=== PATIENT | female | born 1985 | race Caucasian/White ===

== ENCOUNTER 2016-12-22 11:33 | Inpatient (IN) | payer OTHER ==
[2016-12-22 11:41] VITALS: BMI 40.0
[2016-12-22 12:03] LABS: BASOPHIL 0.4 % (0-2.0); MCH 28.5 pg (25.7-33.7); MCHC 32.3 g/dl (32.0-36.0); MEAN CELL VOLUME 88.5 fl (80-96); MEAN PLT VOLUME 9.8 fl (7.5-11.1); NEUTROPHILS 86.3 % (42.8-82.8); PLATELET COUNT 260 K/MM3 (134-434); RDW 15.2 % (11.6-15.6); WHITE BLOOD COUNT 15.6 K/mm3 (4.0-10.0)
[2016-12-22 12:32] LABS: ALBUMIN 4.6 g/dl (3.4-5.0); ANION GAP 24 (8-16); CALCIUM 8.7 mg/dL (8.5-10.1); CO2 6 mmol/L (21-32); SGOT/AST 97 U/L (15-37); SGPT/ALT 180 U/L (12-78); TOT PROT 8.5 g/dl (6.4-8.2)
[2016-12-22 12:34] LABS: ALK PHOS 137 U/L (45-117); GLUCOSE,RANDOM 319 mg/dL (74-106)
[2016-12-22] MEDS ORDERED: SODIUM CHLORIDE 1,000 ML IV STA ×2 (12:34→13:35)
[2016-12-22] MEDS ORDERED: FAMOTIDINE 20 MG/50 ML IVPB 50 ML IVPB ONE ×2 (12:34→12:42)
[2016-12-22] MEDS ORDERED: METOCLOPRAMIDE HCL INJECTION 10 MG/2 ML VIAL IVPB ONE (12:34)
--- NOTE | 2016-12-22 12:38 | PDOC ---
History of Present Illness - General Chief Complaint: Syncope/Near Syncope Stated Complaint: SYNCOPY Time Seen by Provider: 12/22/16 12:16 History Source: Patient Exam Limitations: Language Barrier (patient's family member provided Guyanese translation) - History of Present Illness Initial Comments: CHIEF COMPLAINT: 31 y/o afebrile female with PMH NIDDM c/o nausea, vomiting and abd pain for the past 1 week. HISTORY OF PRESENT ILLNESS: The patient states she vomits every time she eats or drinks although she does admit that she is urinating a lot. She also has a headache, feels weak and fell down today from her weakness. She denies head trauma, LOC, f/c, runny nose, sore throat, diarrhea, constipation, CP, SOB, back pain, hematuria, dysuria. The patient's family member does not think her diabetes is well controlled. Vital signs on arrival are notable for pulse of 115. REVIEW OF SYSTEMS: GENERAL/CONSTITUTIONAL: No fever/chills. + weakness. No weight change. HEAD, EYES, EARS, NOSE AND THROAT: No change in vision. No ear pain or discharge. No sore throat. CARDIOVASCULAR: No chest pain or shortness of breath. RESPIRATORY: No cough, wheezing, or hemoptysis. GASTROINTESTINAL: +nausea, vomiting and abdominal pain. No diarrhea or constipation. GENITOURINARY: No dysuria, frequency, or change in urination. MUSCULOSKELETAL: No joint or muscle swelling or pain. No neck or back pain. SKIN: No rash or easy bruising. NEUROLOGIC: +headache. No vertigo, loss of consciousness, or loss of sensation. PHYSICAL EXAM: GENERAL: The patient is awake, alert, and fully oriented, in no acute distress. She cries intermittently from pain. HEAD: Normal with no signs of trauma. ENT: Pupils equal, round and reactive to light, extraocular movements intact, sclera anicteric, conjunctiva clear. Neck supple. Mucous membranes moist. LUNGS: Clear to auscultation bilaterally. Normal excursion. No respiratory distress or use of accessory muscles. CV: RRR, S1/S2, no MRG. Cap refill < 2 sec. ABDOMEN: Soft, obese, diffusely TTP. No rebound, guarding or rigidity. EXTREMITIES: Normal range of motion, no edema. NEUROLOGICAL: Normal speech, normal gait. CN II-XII grossly intact. PSYCH: Normal mood, normal affect. SKIN: Warm, dry, normal turgor, no rashes or lesions noted. Past History - Past Medical History Allergies/Adverse Reactions: Allergies Allergy/AdvReac Type Severity Reaction Status Date / Time No Known Allergies Allergy Verified 12/22/16 11:39 Home Medications: Ambulatory Orders Calcium Carbonate/Vitamin D3 [Calcium 600+D Softgel] 1 each PO DAILY 12/22/16 Canagliflozin [Invokana] 100 mg PO DAILY 12/22/16 Linagliptin [Tradjenta] 5 mg PO DAILY 12/22/16 Diabetes: Yes - Psycho/Social/Smoking Cessation Hx Suicidal Ideation: No Smoking History: Never smoked *Physical Exam - Vital Signs Last Vital Signs Temp Pulse Resp BP Pulse Ox 97.4 F L 115 H 20 111/91 100 12/22/16 11:39 12/22/16 11:39 12/22/16 11:39 12/22/16 11:39 12/22/16 11:39 Heart Score/ECG Review - ECG Intrepretation Comment:: Twelve-lead EKG was performed and reviewed by Dr. Weir. There is sinus tachycardia. The axis is normal. The intervals are normal. There are no ST or T wave abnormalities. Impression: Otherwise normal twelve-lead EKG ED Treatment Course - LABORATORY CBC & Chemistry Diagram: 12/22/16 11:24 12/22/16 11:24 - ADDITIONAL ORDERS Additional order review: 12/22/16 11:24 RBC 5.53 H MCV 88.5 MCHC 32.3 RDW 15.2 MPV 9.8 Neutrophils % 86.3 H Lymphocytes % 8.0 Monocytes % 5.3 Eosinophils % 0.0 Basophils % 0.4 Medical Decision Making - Medical Decision Making A/P: 31 y/o diabetic female with nausea and vomiting x 1 week. Plan is as follows: 1. EKG 2. Labs 3. UA/culture 4. IV fluids 5. IV reglan 6. IV pepcid Pt with anion gap of 24 with 319 glucose 2+ acetone Ordered 10 units SQ insulin Ordered insulin drip and 2nd bag of IV fluids Spoke with Dr. Singh, who accepts admission to ICU. Patient's PCP is Dr. Alves, who does not admit here. Microblogged hospitalist, Dr. Mckeon, who accepts admission to ICU. Pt made aware of plan for admission. *DC/Admit/Observation/Transfer Diagnosis at time of Disposition: Acetonemia due to secondary diabetes mellitus, Metabolic acidosis, Hyperglycemia, Nausea & vomiting, Weakness - Discharge Dispostion Admit: Yes
[2016-12-22] MEDS ORDERED: METOCLOPRAMIDE HCL INJECTION 10 MG/2 ML VIAL ONE (12:42)
[2016-12-22] MEDS ORDERED: INSULIN DETEMIR 100 UNITS/ML MDV SQ ONE (12:58)
[2016-12-22] MEDS ORDERED: INSULIN (NOVOLOG) ASPART 100 UNITS/ML 10ML VIAL ONE ×2 (13:00→13:36)
[2016-12-22] MEDS ORDERED: Insulin (LOG) Aspart 100 UNITS/ML VIAL SQ ONE (13:12)
[2016-12-22 13:25] LABS: TROPONIN I < 0.02 ng/ml (0.00-0.05)
[2016-12-22] MEDS ORDERED: INSULIN REGULAR 100 UNITS in SODIUM CHLORIDE 99 ML IVPB SCH ×3 (13:30→16:30)
--- NOTE | 2016-12-22 15:26 | HP ---
CHIEF COMPLAINT: Nausea and vomiting PCP: Dr Reynoso HISTORY OF PRESENT ILLNESS: patientgayathri is a 31 y/o ukrainian speaking female with a past medical history of NIDDM (diagnosed 2 years ago) and hyperlipidemia. She reports ongoing nausea, vomiting and frequent urination for the past 24 hours. Patient reports she ambulated to the bathroom this AM and felt as if she was going to pass out. Patient denies any loss of consciousness. She was evaluated by her PCP, Dr Reynoso last week for generalized weakness and reports "high" readings on her glucometer at home. She notes her fingerstick in the office was 349, patient reports she was given insulin in the office and then started on Invokana and Tradjenta. She was referred to an gunner's mate (pt can not recall the name), she reports blood work was completed in the office and is pending the results. 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 Smoking: none Alcohol:none Drugs: none Family History: mother, IDDM, father, alive and well, sister IDDM Allergies No Known Allergies Allergy (Verified 12/22/16 11:39) HOME MEDICATIONS: Home Medications Medication Instructions Recorded Calcium Carbonate/Vitamin D3 1 each PO DAILY 12/22/16 [Calcium 600+D Softgel] Canagliflozin [Invokana] 100 mg PO DAILY 12/22/16 Linagliptin [Tradjenta] 5 mg PO DAILY 12/22/16 REVIEW OF SYSTEMS CONSTITUTIONAL: Present: weakness, malaise, loss of appetite Absent: fever, chills, diaphoresis, weight change HEENT: Absent: rhinorrhea, nasal congestion, throat pain, throat swelling, difficulty swallowing, mouth swelling, ear pain, eye pain, visual changes CARDIOVASCULAR: Absent: chest pain, syncope, palpitations, irregular heart rate, lightheadedness , peripheral edema RESPIRATORY: Absent: cough, shortness of breath, dyspnea with exertion, orthopnea, wheezing, stridor, hemoptysis GASTROINTESTINAL: Present: nausea, vomiting, Absent: abdominal pain, abdominal distension, diarrhea, constipation, melena, hematochezia GENITOURINARY: Present:polyuria Absent: dysuria, frequency, urgency, hesitancy, hematuria, flank pain, genital pain MUSCULOSKELETAL: Absent: myalgia, arthralgia, joint swelling, back pain, neck pain SKIN: Absent: rash, itching, pallor HEMATOLOGIC/IMMUNOLOGIC: Absent: easy bleeding, easy bruising, lymphadenopathy, frequent infections ENDOCRINE: Absent: unexplained weight gain, unexplained weight loss, heat intolerance, cold intolerance NEUROLOGIC: Absent: headache, focal weakness or paresthesias, dizziness, unsteady gait, seizure, mental status changes, bladder or bowel incontinence PSYCHIATRIC: Absent: anxiety, depression, suicidal or homicidal ideation, hallucinations. PHYSICAL EXAMINATION GENERAL: Awake, alert, and fully oriented, tearful. HEAD: Normal with no signs of trauma. EYES: Pupils equal, round and reactive to light, extraocular movements intact, sclera anicteric, conjunctiva clear. No lid lag. EARS, NOSE, THROAT: Ears normal, nares patent, oropharynx clear without exudates. dry mucous membranes. NECK: Normal range of motion, supple without lymphadenopathy, JVD, or masses. LUNGS: Breath sounds equal, clear to auscultation bilaterally. No wheezes, and no crackles. No accessory muscle use. HEART: Regular rate and rhythm, normal S1 and S2 without murmur, rub or gallop. ABDOMEN: Soft, nontender, not distended, normoactive bowel sounds, epigastric tenderness, no guarding, no rebound, no masses. No hepatomegaly or splenomegaly. MUSCULOSKELETAL: Normal range of motion at all joints. No bony deformities or tenderness. No CVA tenderness. UPPER EXTREMITIES: 2+ pulses, warm, well-perfused. No cyanosis. No clubbing. Cap refill <2 seconds. No peripheral edema. LOWER EXTREMITIES: 2+ pulses, warm, well-perfused. No calf tenderness. No peripheral edema. NEUROLOGICAL: Cranial nerves II-XII intact. Normal speech. Normal gait. PSYCHIATRIC: Cooperative. Good eye contact. Appropriate mood and affect. SKIN: Warm, dry, normal turgor, no rashes or lesions noted. ASSESSMENT/PLAN: 1) Endo: DKA - gap remains open, continue insulin gtt - serum glucose 169, start d51/2ns w/20meg KCI @ 125ml/hr - repeat bmp at 1900 2) GI transanimitis - pending ultrasound of gallbladder - trend LFTS - pending hepatitis panel f/e/n -ivf - replete phos, kphos gtt ordered ppx oob scd protonix lovenox Visit type - Emergency Visit Emergency Visit: Yes ED Registration Date: 12/22/16 Care time: The patient presented to the Emergency Department on the above date and was hospitalized for further evaluation of their emergent condition. - New Patient This patient is new to me today: Yes Date on this admission: 12/22/16 - Critical Care Critical Care patient: Yes Total Critical Care Time (in minutes): 45 Critical Care Statement: The care of this patient involved high complexity decision making to prevent further life threatening deterioration of the patient 's condition and/or to evalute & treat vital organ system(s) failure or risk of failure.
[2016-12-22 15:57] LABS: ALBUMIN 3.8 g/dl (3.4-5.0); ANION GAP 23 (8-16); BILIRUBIN,TOTAL 0.8 mg/dL (0.2-1.0); CALCIUM 7.9 mg/dL (8.5-10.1); CO2 7 mmol/L (21-32); CREATININE 0.6 mg/dL (0.55-1.02); GLUCOSE,RANDOM 169 mg/dL (74-106); MAGNESIUM 1.9 mg/dL (1.8-2.4); PHOSPHOROUS 1.6 mg/dL (2.5-4.9); SGOT/AST 85 U/L (15-37); SGPT/ALT 150 U/L (12-78); TOT PROT 7.3 g/dl (6.4-8.2)
[2016-12-22 15:58] LABS: ALK PHOS 107 U/L (45-117)
[2016-12-22] MEDS ORDERED: SODIUM CHLORIDE 0.9%/KCL 1,000 ML IV SCH (16:00)
[2016-12-22] MEDS ORDERED: POTASSIUM PHOSPHATE 21 MM in SODIUM CHLORIDE 250 ML IVPB ONE (16:00)
[2016-12-22] MEDS ORDERED: PANTOPRAZOLE SODIUM 100 ML IVPB ONE (16:23)
[2016-12-22] MEDS ORDERED: Insulin (LOG) Aspart 100 UNITS/ML VIAL SQ SCH (16:30)
[2016-12-22] MEDS ORDERED: D5-1/2NS+20 MEQ KCL - 1,000 ML IV SCH (16:30)
[2016-12-22] MEDS: PANTOPRAZOLE SODIUM 100 ML IVPB SCH (16:39)
[2016-12-22] MEDS ORDERED: INFLUENZA VACCINE 45 MCG/0.5 ML (MDV 16-17) IM ONE (19:00)
[2016-12-22] MEDS ORDERED: PNEUMOC 13-VAL CONJ-DIP CRM/PF 0.5 ML DISP.SYRIN IM ONE (19:00)
[2016-12-22 20:29] LABS: CALCIUM 8.1 mg/dL (8.5-10.1); CREATININE 0.7 mg/dL (0.55-1.02)
[2016-12-22 20:31] LABS: CREATININE 0.8 mg/dL (0.55-1.02)
[2016-12-22 20:32] LABS: ALBUMIN 3.8 g/dl (3.4-5.0); BILIRUBIN,DIRECT 0.3 mg/dL (0.0-0.2); MAGNESIUM 1.9 mg/dL (1.8-2.4); PHOSPHOROUS 1.5 mg/dL (2.5-4.9)
[2016-12-22] MEDS ORDERED: SODIUM CHLORIDE 500 ML IV STA (20:35)
[2016-12-22 20:38] LABS: THYROID STIMULATING HORMONE 1.04 uIU/ml (0.358-3.74)
[2016-12-22] MEDS ORDERED: PNEUMOCOCCAL 23 VACCINE 0.5 ML VIAL IM ONE (20:45)
[2016-12-22] MEDS ORDERED: LACTATED RINGERS SOLUTION 1,000 ML IV STA (20:47)
--- NOTE | 2016-12-22 20:50 | CONSULT ---
Consult Consult Specialty:: Pulm/CC - History of Present Illness Chief Complaint: n/v History of Present Illness: Pt offered and declined translation services. Pt is a 31yr old woman with PMHx of HLD and DM. She presents to the ER with CC of n/v x 1 weeks and an unresolved "flu since November". In the ER found to have serum glucose >300 with anion gap and +2 acetone. Started and IVF and insulin drip and admitted to the ICU for further management. Upon assessment pt endorses headache and intermittent SOB with cough. Denies chest pain. Pt states she has lost about 20lbs in the last 2 weeks with associated polyuria. - Smoking History Smoking history: Never smoked Home Medications - Allergies Allergies/Adverse Reactions: Allergies Allergy/AdvReac Type Severity Reaction Status Date / Time No Known Allergies Allergy Verified 12/22/16 11:39 - Home Medications Home Medications: Ambulatory Orders Calcium Carbonate/Vitamin D3 [Calcium 600+D Softgel] 1 each PO DAILY 12/22/16 Canagliflozin [Invokana] 100 mg PO DAILY 12/22/16 Linagliptin [Tradjenta] 5 mg PO DAILY 12/22/16 Review of Systems - Review of Systems Constitutional: reports: Loss of Appetite, Weakness Respiratory: reports: Cough, SOB Gastrointestinal: reports: Abdominal Pain, Nausea, Vomiting Genitourinary: denies: Dysuria Neurological: reports: Headache Endocrine: reports: Increased Thirst Physical Exam Vital Signs: Vital Signs Period Temp Pulse Resp BP Sys/Mandel Pulse Ox Last 24 Hr 97.4 F-97.6 F 95-115 15-22 111-127/65-91 100-100 Intake & Output 12/19/16 12/20/16 12/21/16 12/22/16 23:59 23:59 23:59 23:59 Intake Total 2100 Output Total 1000 Balance 1100 Weight 219 lb Constitutional: Yes: Well Nourished, No Distress, Calm Eyes: Yes: WNL, PERRL HENT: Yes: WNL Neck: Yes: WNL Cardiovascular: Yes: Tachycardia (sinus on tele), S1, S2 Respiratory: Yes: SOB (intermittent), Other (no adventitious breath sounds appreciated). No: Rhonchi Gastrointestinal: Yes: Normal Bowel Sounds, Abdomen, Obese, Tenderness (RLQ, rt flank) ...Rectal Exam: Yes: Deferred Renal/: Yes: Other (polyuria) Musculoskeletal: Yes: WNL Extremities: Yes: WNL Edema: No Peripheral Pulses WNL: Yes (+2 bilateral pedal pulses) Integumentary: Yes: WNL Neurological: Yes: WNL Psychiatric: Yes: WNL Labs: Abnormal Lab Results 12/22/16 12/22/16 12/22/16 11:24 11:24 12:37 WBC 15.6 H RBC 5.53 H Hgb 15.8 H Hct 48.9 H Neutrophils % 86.3 H Sodium 134 L Chloride Carbon Dioxide 6 L Anion Gap 24 H BUN Random Glucose 319 H* Calcium Phosphorus Direct Bilirubin AST 97 H ALT 180 H Alkaline Phosphatase 137 H Total Protein 8.5 H Acetone, Qual Positive moderate 2+ H 12/22/16 12/22/16 12/22/16 15:19 19:45 19:45 WBC RBC Hgb Hct Neutrophils % Sodium Chloride 110 H 112 H 112 H Carbon Dioxide 7 L 11 L D 11 L Anion Gap 23 H BUN 6 L D 5 L 5 L Random Glucose 169 H D Calcium 7.9 L 8.0 L 8.1 L Phosphorus 1.6 L Direct Bilirubin AST 85 H ALT 150 H Alkaline Phosphatase Total Protein Acetone, Qual 12/22/16 19:45 WBC RBC Hgb Hct Neutrophils % Sodium Chloride Carbon Dioxide Anion Gap BUN Random Glucose Calcium Phosphorus 1.5 L Direct Bilirubin 0.3 H AST 71 H ALT 142 H Alkaline Phosphatase Total Protein Acetone, Qual Assessment/Plan Pt is a 31yr old with PMHx of HLD and DM. Now in the ICU for management of uncontrolled glucose and leukocytosis likely secondary to UTI +/- URI. Pulm -O2 support prn for sat >94% -Incentive spirometer -Nebulizer prn ID: Leukocytosis -f/u cultures/flu swab -Will start empiric Ceftriaxone -f/u chest xray Endo -Gap closed, tolerating po and subq levamir ordered, will d/c insulin drip and change fluids -Will start Levemir 10U BID, sliding scale novolog, increase prn -f/u A1c -BGM Renal -f/u UA -I/Os -IVF -Replete electrolytes prn Cardio -Tachycardia likely in setting of dehydration -f/u enzymes GI -f/u gallbladder us -Consider CT ab/pel is abdominal pain persists -Zofran prn Neuro -pain management Prophylactic -DVT
[2016-12-22] MEDS: INSULIN DETEMIR 100 UNITS/ML MDV SQ SCH (21:07)
[2016-12-22] MEDS ORDERED: CEFTRIAXONE 50 ML IVPB SCH (22:00)
[2016-12-22 22:26] LABS: URINE APPEARANCE CLEAR; URINE BILIRUBIN NEGATIVE (NEGATIVE); URINE COLOR STRAW; URINE GLUCOSE (UA) 3+ (NEGATIVE); URINE KETONE 2+ (NEGATIVE); URINE LEUK ESTERASE NEGATIVE (NEGATIVE); URINE NITRITE NEGATIVE (NEGATIVE); URINE UROBILINOGEN NEGATIVE E.U./dl (0.2-1.0)
[2016-12-22 22:27] LABS: URINE BLOOD 1+ (NEGATIVE); URINE PROTEIN 1+ (NEGATIVE)
[2016-12-22 22:30] LABS: GRANULAR CASTS 1 /lpf; URINE HYALINE CAST 1 /lpf; URINE MUCUS RARE; URINE RBC 1 /hpf (0-3); URINE WBC 3 /hpf (3-5); YEAST RARE
[2016-12-22] MEDS ORDERED: LACTATED RINGERS SOLUTION 1,000 ML IV SCH (22:30)
[2016-12-22] MEDS: INSULIN SLIDING SCALE (NOVOLOG) 1 VIAL SQ SCH (23:13)
[2016-12-22] MEDS ORDERED: CALCIUM (OYSTER SHELL) 500 MG TABLET (FP) PO ONE (23:30)
--- NOTE | 2016-12-23 00:35 | EKG ---
Test Reason : Blood Pressure : / mmHG Vent. Rate : 112 BPM Atrial Rate : 112 BPM P-R Int : 154 ms QRS Dur : 086 ms QT Int : 346 ms P-R-T Axes : 028 065 040 degrees QTc Int : 472 ms SINUS TACHYCARDIA OTHERWISE NORMAL ECG NO PREVIOUS ECGS AVAILABLE Confirmed by NICOLASA METCALF MD ([id number]) on 12/23/2016 12:35:35 AM Referred By: Confirmed By:NICOLASA METCALF MD
[2016-12-23 03:50] LABS: BASOPHIL 0.6 % (0-2.0); EOSINOPHIL 0.6 % (0-4.5); MCH 28.7 pg (25.7-33.7); MCHC 33.5 g/dl (32.0-36.0); MEAN CELL VOLUME 85.5 fl (80-96); MEAN PLT VOLUME 9.1 fl (7.5-11.1); PLATELET COUNT 231 K/MM3 (134-434); RDW 14.8 % (11.6-15.6); WHITE BLOOD COUNT 13.2 K/mm3 (4.0-10.0)
[2016-12-23 03:58] LABS: INR 1.16 (0.82-1.09); PROTHROMBIN TIME (PATIENT) 12.8 SEC (9.98-11.88)
[2016-12-23] MEDS ORDERED: ALBUTEROL SO4 0.083% IH SOL 2.5 MG/3 ML VIAL.NEB. NEB PRN ×2 (04:01→17:54)
[2016-12-23 04:10] LABS: ALBUMIN 3.5 g/dl (3.4-5.0); ANION GAP 18 (8-16); CALCIUM 8.3 mg/dL (8.5-10.1); CO2 12 mmol/L (21-32); CREATININE 0.7 mg/dL (0.55-1.02); GLUCOSE,RANDOM 158 mg/dL (74-106); MAGNESIUM 1.8 mg/dL (1.8-2.4); PHOSPHOROUS 1.7 mg/dL (2.5-4.9); SGOT/AST 53 U/L (15-37); SGPT/ALT 116 U/L (12-78)
[2016-12-23 04:11] LABS: ALK PHOS 87 U/L (45-117); BILIRUBIN,TOTAL 1.3 mg/dL (0.2-1.0); TOT PROT 6.4 g/dl (6.4-8.2)
[2016-12-23 04:26] LABS: AMYLASE 111 U/L (25-115)
[2016-12-23 04:27] LABS: TROPONIN I < 0.02 ng/ml (0.00-0.05)
[2016-12-23] MEDS ORDERED: POTASSIUM PHOSPHATE 25 MM in SODIUM CHLORIDE 250 ML IVPB ONE (04:42)
[2016-12-23] MEDS ORDERED: LACTATED RINGERS SOLUTION 1,000 ML IV SCH ×2 (05:02→17:54)
[2016-12-23] MEDS ORDERED: morphine CARPU-JECT 2 MG/1 ML DISP.SYRIN IVPUSH PRN ×2 (05:04→17:54)
[2016-12-23] MEDS: INSULIN DETEMIR 100 UNITS/ML MDV SQ SCH ×2 (06:36→21:46)
[2016-12-23] MEDS: INSULIN SLIDING SCALE (NOVOLOG) 1 VIAL SQ SCH ×3 (06:36→17:00)
[2016-12-23] MEDS ORDERED: PT OWN MED DRAWER 7, Y5N ONE (08:38)
[2016-12-23] MEDS: PANTOPRAZOLE SODIUM 100 ML IVPB SCH (09:44)
[2016-12-23] MEDS ORDERED: ENOXAPARIN NA (PORCINE) 40 MG/0.4 ML DISP.SYRIN SQ SCH (10:00)
[2016-12-23 12:05] LABS: BASOPHIL 0.8 % (0-2.0); MCH 28.9 pg (25.7-33.7); MCHC 33.5 g/dl (32.0-36.0); MEAN CELL VOLUME 86.2 fl (80-96); MEAN PLT VOLUME 9.3 fl (7.5-11.1); NEUTROPHILS 61.4 % (42.8-82.8); PLATELET COUNT 203 K/MM3 (134-434); WHITE BLOOD COUNT 8.5 K/mm3 (4.0-10.0)
[2016-12-23 12:29] LABS: ALBUMIN 3.3 g/dl (3.4-5.0); ALK PHOS 93 U/L (45-117); AMYLASE 69 U/L (25-115); ANION GAP 18 (8-16); BILIRUBIN,TOTAL 1.3 mg/dL (0.2-1.0); CALCIUM 7.9 mg/dL (8.5-10.1); CHOLESTEROL 125 mg/dL (50-200); CO2 11 mmol/L (21-32); CREATININE 0.6 mg/dL (0.55-1.02); GLUCOSE,RANDOM 109 mg/dL (74-106); MAGNESIUM 1.8 mg/dL (1.8-2.4); PHOSPHOROUS 2.1 mg/dL (2.5-4.9); SGOT/AST 48 U/L (15-37); SGPT/ALT 109 U/L (12-78); TOT PROT 6.2 g/dl (6.4-8.2)
[2016-12-23 12:30] LABS: LDL CHOLESTEROL (ONLY SJRH) 89 mg/dL (5-100)
--- NOTE | 2016-12-23 13:23 | PN ---
Teaching Attending Note Name of Resident: Andrés Zhang ATTENDING PHYSICIAN STATEMENT I saw and evaluated the patient. I reviewed the resident's note and discussed the case with the resident. I agree with the resident's findings and plan as documented. SUBJECTIVE: Patient seen and examined in the ICU. In brief, 31 F, HPL and DM. Admitted via the ER due to nausea/vomiting/abdominal pain for about 1 week. No vomiting blood or blood noted in the stool. Noted to have a severe electrolyte imbalance and elevated blood sugar. Started on IV Insulin for presumptive DKA. No travel history or sick contacts. Intake & Output 12/20/16 12/21/16 12/22/16 12/23/16 23:59 23:59 23:59 23:59 Intake Total 2100 2610 Output Total 2100 Balance 0 2610 Weight 214 lb 9 oz 217 lb Last Vital Signs Temp Pulse Resp BP Pulse Ox 98.4 F 97 H 22 103/64 100 12/23/16 06:00 12/23/16 06:00 12/23/16 06:00 12/23/16 06:00 12/22/16 20:00 Active Medications Albuterol Sulfate (Ventolin 0.083% Nebulizer Soln -) 1 amp NEB Q4H PRN PRN Reason: SHORT OF BREATH/WHEEZING Enoxaparin Sodium (Lovenox -) 40 mg SQ DAILY [facility] Last Admin: 12/23/16 09:45 Dose: 40 mg Pantoprazole Sodium (Protonix 40mg Ivpb (Pre-Docked)) 100 mls @ 200 mls/hr IVPB DAILY [facility] Last Admin: 12/23/16 09:44 Dose: 200 mls/hr Lactated Ringer's (Lactated Ringers Solution) 1,000 mls @ 175 mls/hr IV ASDIR [facility] Last Admin: 12/23/16 05:15 Dose: 175 mls/hr Potassium Chloride (Potassium Chloride 10 Meq Premix Ivpb -) 100 mls @ 100 mls/ hr IVPB Q60M [facility] Stop: 12/23/16 14:44 Insulin Aspart (Novolog Vial Sliding Scale -) 1 vial SQ TIDAC [facility] PRN Reason: Protocol Last Admin: 12/23/16 12:25 Dose: Not Given Insulin Detemir (Levemir Vial) 10 units SQ BID@0700,2200 [facility] Last Admin: 12/23/16 06:36 Dose: 10 units Morphine Sulfate (Morphine Injection -) 1 mg IVPUSH Q3H PRN PRN Reason: PAIN Last Admin: 12/23/16 05:14 Dose: 1 mg Constitutional: Yes: Well Nourished, No Distress Eyes: Yes: WNL, PERRL HENT: Yes: WNL Neck: Yes: WNL Cardiovascular: Yes: Tachycardia (sinus on tele), S1, S2 Respiratory: Yes: SOB (intermittent), Other (no adventitious breath sounds appreciated). No: Rhonchi Gastrointestinal: Yes: Normal Bowel Sounds, Abdomen, Obese, Mid-Epigastric Tenderness ...Rectal Exam: Yes: Deferred Renal/: Yes: Other (polyuria) Musculoskeletal: Yes: WNL Extremities: Yes: WNL Edema: No Peripheral Pulses WNL: Yes (+2 bilateral pedal pulses) Integumentary: Yes: WNL Neurological: Yes: WNL Psychiatric: Yes: WNL Labs: Laboratory Results - last 24 hr 12/22/16 12/22/16 12/22/16 11:24 12:37 12:45 WBC RBC Hgb Hct MCV MCHC RDW Plt Count MPV Neutrophils % Lymphocytes % Monocytes % Eosinophils % Basophils % INR Sodium Potassium Chloride Carbon Dioxide Anion Gap BUN Creatinine Creat Clearance w eGFR POC Glucometer Random Glucose Hemoglobin A1c % Lactic Acid Calcium Phosphorus Magnesium Total Bilirubin Direct Bilirubin AST ALT Alkaline Phosphatase Creatine Kinase Cancelled 91 Troponin I Cancelled < 0.02 Total Protein Albumin Triglycerides Cholesterol Total LDL Cholesterol HDL Cholesterol Total Amylase Lipase TSH Free T4 Urine Color Urine Appearance Urine pH Ur Specific [place] Urine Protein Urine Glucose (UA) Urine Ketones Urine Blood Urine Nitrite Urine Bilirubin Urine Urobilinogen Ur Leukocyte Esterase Urine RBC Urine WBC Ur Epithelial Cells Hyaline Casts Granular Casts Urine Mucus Urine Yeast Acetone, Qual Positive moderate 2+ H 12/22/16 12/22/16 12/22/16 14:23 15:19 16:38 WBC RBC Hgb Hct MCV MCHC RDW Plt Count MPV Neutrophils % Lymphocytes % Monocytes % Eosinophils % Basophils % INR Sodium 140 Potassium 3.6 Chloride 110 H Carbon Dioxide 7 L Anion Gap 23 H BUN 6 L D Creatinine 0.6 D Creat Clearance w eGFR > 60 POC Glucometer 234.25617 98.67715 Random Glucose 169 H D Hemoglobin A1c % Lactic Acid Calcium 7.9 L Phosphorus 1.6 L Magnesium 1.9 Total Bilirubin 0.8 Direct Bilirubin AST 85 H ALT 150 H Alkaline Phosphatase 107 D Creatine Kinase Troponin I Total Protein 7.3 Albumin 3.8 Triglycerides Cholesterol Total LDL Cholesterol HDL Cholesterol Total Amylase Lipase TSH Free T4 Urine Color Urine Appearance Urine pH Ur Specific [place] Urine Protein Urine Glucose (UA) Urine Ketones Urine Blood Urine Nitrite Urine Bilirubin Urine Urobilinogen Ur Leukocyte Esterase Urine RBC Urine WBC Ur Epithelial Cells Hyaline Casts Granular Casts Urine Mucus Urine Yeast Acetone, Qual 12/22/16 12/22/16 12/22/16 17:31 18:44 19:45 WBC RBC Hgb Hct MCV MCHC RDW Plt Count MPV Neutrophils % Lymphocytes % Monocytes % Eosinophils % Basophils % INR Sodium 138 Potassium 3.8 Chloride 112 H Carbon Dioxide 11 L D Anion Gap 15 BUN 5 L Creatinine 0.8 D Creat Clearance w eGFR POC Glucometer 108.26744 133.09692 Random Glucose 104 D Hemoglobin A1c % Lactic Acid Calcium 8.0 L Phosphorus Magnesium Total Bilirubin Direct Bilirubin AST ALT Alkaline Phosphatase Creatine Kinase Troponin I Total Protein Albumin Triglycerides Cholesterol Total LDL Cholesterol HDL Cholesterol Total Amylase Lipase TSH 1.04 Free T4 Urine Color Urine Appearance Urine pH Ur Specific [place] Urine Protein Urine Glucose (UA) Urine Ketones Urine Blood Urine Nitrite Urine Bilirubin Urine Urobilinogen Ur Leukocyte Esterase Urine RBC Urine WBC Ur Epithelial Cells Hyaline Casts Granular Casts Urine Mucus Urine Yeast Acetone, Qual 12/22/16 12/22/16 12/22/16 19:45 19:45 19:45 WBC RBC Hgb Hct MCV MCHC RDW Plt Count MPV Neutrophils % Lymphocytes % Monocytes % Eosinophils % Basophils % INR Sodium 139 Potassium 3.8 Chloride 112 H Carbon Dioxide 11 L Anion Gap 16 BUN 5 L Creatinine 0.7 Creat Clearance w eGFR POC Glucometer Random Glucose 105 Hemoglobin A1c % Lactic Acid Calcium 8.1 L Phosphorus 1.5 L Magnesium 1.9 Total Bilirubin 1.0 D Direct Bilirubin 0.3 H AST 71 H ALT 142 H Alkaline Phosphatase 103 Creatine Kinase Troponin I Total Protein 7.0 Albumin 3.8 Triglycerides Cholesterol Total LDL Cholesterol HDL Cholesterol Total Amylase Lipase TSH Free T4 0.96 Urine Color Urine Appearance Urine pH Ur Specific [place] Urine Protein Urine Glucose (UA) Urine Ketones Urine Blood Urine Nitrite Urine Bilirubin Urine Urobilinogen Ur Leukocyte Esterase Urine RBC Urine WBC Ur Epithelial Cells Hyaline Casts Granular Casts Urine Mucus Urine Yeast Acetone, Qual 12/22/16 12/22/16 12/22/16 20:26 21:15 22:25 WBC RBC Hgb Hct MCV MCHC RDW Plt Count MPV Neutrophils % Lymphocytes % Monocytes % Eosinophils % Basophils % INR Sodium Potassium Chloride Carbon Dioxide Anion Gap BUN Creatinine Creat Clearance w eGFR POC Glucometer 125.60901 176.65686 Random Glucose Hemoglobin A1c % Lactic Acid Calcium Phosphorus Magnesium Total Bilirubin Direct Bilirubin AST ALT Alkaline Phosphatase Creatine Kinase Troponin I Total Protein Albumin Triglycerides Cholesterol Total LDL Cholesterol HDL Cholesterol Total Amylase Lipase TSH Free T4 Urine Color Straw Urine Appearance Clear Urine pH 5.0 Ur Specific [place] 1.015 Urine Protein 1+ H Urine Glucose (UA) 3+ H Urine Ketones 2+ H Urine Blood 1+ H Urine Nitrite Negative Urine Bilirubin Negative Urine Urobilinogen Negative Ur Leukocyte Esterase Negative Urine RBC 1 Urine WBC 3 Ur Epithelial Cells Rare Hyaline Casts 1 Granular Casts 1 Urine Mucus Rare Urine Yeast Rare Acetone, Qual 12/23/16 12/23/16 12/23/16 00:44 01:40 03:30 WBC 13.2 H RBC 4.70 Hgb 13.5 D Hct 40.2 D MCV 85.5 MCHC 33.5 RDW 14.8 Plt Count 231 MPV 9.1 Neutrophils % 67.0 D Lymphocytes % 24.1 D Monocytes % 7.7 Eosinophils % 0.6 D Basophils % 0.6 INR Sodium Potassium Chloride Carbon Dioxide Anion Gap BUN Creatinine Creat Clearance w eGFR POC Glucometer 175.08526 171.72093 Random Glucose Hemoglobin A1c % Lactic Acid Calcium Phosphorus Magnesium Total Bilirubin Direct Bilirubin AST ALT Alkaline Phosphatase Creatine Kinase Troponin I Total Protein Albumin Triglycerides Cholesterol Total LDL Cholesterol HDL Cholesterol Total Amylase Lipase TSH Free T4 Urine Color Urine Appearance Urine pH Ur Specific [place] Urine Protein Urine Glucose (UA) Urine Ketones Urine Blood Urine Nitrite Urine Bilirubin Urine Urobilinogen Ur Leukocyte Esterase Urine RBC Urine WBC Ur Epithelial Cells Hyaline Casts Granular Casts Urine Mucus Urine Yeast Acetone, Qual 12/23/16 12/23/16 12/23/16 03:30 03:30 03:30 WBC RBC Hgb Hct MCV MCHC RDW Plt Count MPV Neutrophils % Lymphocytes % Monocytes % Eosinophils % Basophils % INR 1.16 H Sodium 140 Potassium 3.5 Chloride 110 H Carbon Dioxide 12 L Anion Gap 18 H BUN 6 L Creatinine 0.7 Creat Clearance w eGFR > 60 POC Glucometer Random Glucose 158 H D Hemoglobin A1c % 9.9 H Lactic Acid Calcium 8.3 L Phosphorus 1.7 L Magnesium 1.8 Total Bilirubin 1.3 H D Direct Bilirubin AST 53 H D ALT 116 H Alkaline Phosphatase 87 Creatine Kinase Troponin I Total Protein 6.4 Albumin 3.5 Triglycerides Cholesterol Total LDL Cholesterol HDL Cholesterol Total Amylase Lipase TSH Free T4 Urine Color Urine Appearance Urine pH Ur Specific [place] Urine Protein Urine Glucose (UA) Urine Ketones Urine Blood Urine Nitrite Urine Bilirubin Urine Urobilinogen Ur Leukocyte Esterase Urine RBC Urine WBC Ur Epithelial Cells Hyaline Casts Granular Casts Urine Mucus Urine Yeast Acetone, Qual 12/23/16 12/23/16 12/23/16 03:30 05:49 08:06 WBC RBC Hgb Hct MCV MCHC RDW Plt Count MPV Neutrophils % Lymphocytes % Monocytes % Eosinophils % Basophils % INR Sodium Potassium Chloride Carbon Dioxide Anion Gap BUN Creatinine Creat Clearance w eGFR POC Glucometer 167.29047 125.22269 Random Glucose Hemoglobin A1c % Lactic Acid Calcium Phosphorus Magnesium Total Bilirubin Direct Bilirubin AST ALT Alkaline Phosphatase Creatine Kinase 63 Troponin I < 0.02 Total Protein Albumin Triglycerides Cholesterol Total LDL Cholesterol HDL Cholesterol Total Amylase 111 Lipase 575 H TSH Free T4 Urine Color Urine Appearance Urine pH Ur Specific [place] Urine Protein Urine Glucose (UA) Urine Ketones Urine Blood Urine Nitrite Urine Bilirubin Urine Urobilinogen Ur Leukocyte Esterase Urine RBC Urine WBC Ur Epithelial Cells Hyaline Casts Granular Casts Urine Mucus Urine Yeast Acetone, Qual 12/23/16 12/23/16 12/23/16 11:45 11:45 11:45 WBC 8.5 D RBC 4.48 Hgb 12.9 Hct 38.6 MCV 86.2 MCHC 33.5 RDW 15.0 Plt Count 203 MPV 9.3 Neutrophils % 61.4 Lymphocytes % 28.1 Monocytes % 8.7 Eosinophils % 1.0 Basophils % 0.8 INR Sodium 139 Potassium 3.3 L Chloride 110 H Carbon Dioxide 11 L Anion Gap 18 H BUN 4 L D Creatinine 0.6 Creat Clearance w eGFR > 60 POC Glucometer Random Glucose 109 H D Hemoglobin A1c % Lactic Acid 0.661 Calcium 7.9 L Phosphorus 2.1 L D Magnesium 1.8 Total Bilirubin 1.3 H Direct Bilirubin AST 48 H ALT 109 H Alkaline Phosphatase 93 Creatine Kinase Troponin I Total Protein 6.2 L Albumin 3.3 L Triglycerides 95 Cholesterol 125 Total LDL Cholesterol 89 HDL Cholesterol 29 L Total Amylase 69 D Lipase TSH Free T4 Urine Color Urine Appearance Urine pH Ur Specific [place] Urine Protein Urine Glucose (UA) Urine Ketones Urine Blood Urine Nitrite Urine Bilirubin Urine Urobilinogen Ur Leukocyte Esterase Urine RBC Urine WBC Ur Epithelial Cells Hyaline Casts Granular Casts Urine Mucus Urine Yeast Acetone, Qual 12/23/16 11:47 WBC RBC Hgb Hct MCV MCHC RDW Plt Count MPV Neutrophils % Lymphocytes % Monocytes % Eosinophils % Basophils % INR Sodium Potassium Chloride Carbon Dioxide Anion Gap BUN Creatinine Creat Clearance w eGFR POC Glucometer 101.97037 Random Glucose Hemoglobin A1c % Lactic Acid Calcium Phosphorus Magnesium Total Bilirubin Direct Bilirubin AST ALT Alkaline Phosphatase Creatine Kinase Troponin I Total Protein Albumin Triglycerides Cholesterol Total LDL Cholesterol HDL Cholesterol Total Amylase Lipase TSH Free T4 Urine Color Urine Appearance Urine pH Ur Specific [place] Urine Protein Urine Glucose (UA) Urine Ketones Urine Blood Urine Nitrite Urine Bilirubin Urine Urobilinogen Ur Leukocyte Esterase Urine RBC Urine WBC Ur Epithelial Cells Hyaline Casts Granular Casts Urine Mucus Urine Yeast Acetone, Qual Assessment/Plan Hyperglycemia (?) Mild Pancreatitis Electrolyte Imbalance HPL Poorly controlled DKA Morbid Obesity (?) Sleep Apnea IVF PO as tolerated O2 as needed Incentive spirometer Monitor off ABX for now Follow Lipase/Amylase in AM Glycemic control VTE prophylaxis Sleep screen after discharge Check CT scan report Dr Singh CCTime 35"
[2016-12-23] MEDS: KCL 10 MEQ IVPB 100 ML IVPB SCH ×2 (14:43→15:15)
--- NOTE | 2016-12-23 16:18 | PN ---
Physical Exam: SUBJECTIVE: Patient seen and examined at bedside in the ICU. She stated she's feeling much better, nausea has resolved, still has abd pain but less in severity and would like to eat. Denies fever, chills, headache, chest pain, sob, and urinary sx. OBJECTIVE: Vital Signs Period Temp Pulse Resp BP Sys/Mandel Pulse Ox Last 24 Hr 97.4 F-98.4 F 85-107 14-22 94-130/64-84 100-100 GENERAL: The patient is awake, alert, and fully oriented, in no acute distress. EYES: PERRL, extraocular movements intact, sclera anicteric, conjunctiva clear. . ENT: oropharynx clear without exudates, moist mucous membranes. LUNGS: Breath sounds equal, clear to auscultation bilaterally, no wheezes, no crackles, no accessory muscle use. HEART: Regular rate and rhythm, S1, S2 without murmur, rub or gallop. ABDOMEN: Soft, diffuse tenderness, nondistended, normoactive bowel sounds, no guarding, no rebound, no hepatosplenomegaly, no masses. EXTREMITIES: no edema. Laboratory Results - last 24 hr 12/22/16 12/22/16 12/22/16 15:19 16:38 17:31 WBC RBC Hgb Hct MCV MCHC RDW Plt Count MPV Neutrophils % Lymphocytes % Monocytes % Eosinophils % Basophils % INR Sodium 140 Potassium 3.6 Chloride 110 H Carbon Dioxide 7 L Anion Gap 23 H BUN 6 L D Creatinine 0.6 D Creat Clearance w eGFR > 60 POC Glucometer 98.65288 108.14101 Random Glucose 169 H D Hemoglobin A1c % Lactic Acid Calcium 7.9 L Phosphorus 1.6 L Magnesium 1.9 Total Bilirubin 0.8 Direct Bilirubin AST 85 H ALT 150 H Alkaline Phosphatase 107 D Creatine Kinase Troponin I Total Protein 7.3 Albumin 3.8 Triglycerides Cholesterol Total LDL Cholesterol HDL Cholesterol Total Amylase Lipase TSH Free T4 Urine Color Urine Appearance Urine pH Ur Specific [place] Urine Protein Urine Glucose (UA) Urine Ketones Urine Blood Urine Nitrite Urine Bilirubin Urine Urobilinogen Ur Leukocyte Esterase Urine RBC Urine WBC Ur Epithelial Cells Hyaline Casts Granular Casts Urine Mucus Urine Yeast 12/22/16 12/22/16 12/22/16 18:44 19:45 19:45 WBC RBC Hgb Hct MCV MCHC RDW Plt Count MPV Neutrophils % Lymphocytes % Monocytes % Eosinophils % Basophils % INR Sodium 138 Potassium 3.8 Chloride 112 H Carbon Dioxide 11 L D Anion Gap 15 BUN 5 L Creatinine 0.8 D Creat Clearance w eGFR POC Glucometer 133.69184 Random Glucose 104 D Hemoglobin A1c % Lactic Acid Calcium 8.0 L Phosphorus Magnesium Total Bilirubin Direct Bilirubin AST ALT Alkaline Phosphatase Creatine Kinase Troponin I Total Protein Albumin Triglycerides Cholesterol Total LDL Cholesterol HDL Cholesterol Total Amylase Lipase TSH 1.04 Free T4 0.96 Urine Color Urine Appearance Urine pH Ur Specific [place] Urine Protein Urine Glucose (UA) Urine Ketones Urine Blood Urine Nitrite Urine Bilirubin Urine Urobilinogen Ur Leukocyte Esterase Urine RBC Urine WBC Ur Epithelial Cells Hyaline Casts Granular Casts Urine Mucus Urine Yeast 12/22/16 12/22/16 12/22/16 19:45 19:45 20:26 WBC RBC Hgb Hct MCV MCHC RDW Plt Count MPV Neutrophils % Lymphocytes % Monocytes % Eosinophils % Basophils % INR Sodium 139 Potassium 3.8 Chloride 112 H Carbon Dioxide 11 L Anion Gap 16 BUN 5 L Creatinine 0.7 Creat Clearance w eGFR POC Glucometer 125.83571 Random Glucose 105 Hemoglobin A1c % Lactic Acid Calcium 8.1 L Phosphorus 1.5 L Magnesium 1.9 Total Bilirubin 1.0 D Direct Bilirubin 0.3 H AST 71 H ALT 142 H Alkaline Phosphatase 103 Creatine Kinase Troponin I Total Protein 7.0 Albumin 3.8 Triglycerides Cholesterol Total LDL Cholesterol HDL Cholesterol Total Amylase Lipase TSH Free T4 Urine Color Urine Appearance Urine pH Ur Specific [place] Urine Protein Urine Glucose (UA) Urine Ketones Urine Blood Urine Nitrite Urine Bilirubin Urine Urobilinogen Ur Leukocyte Esterase Urine RBC Urine WBC Ur Epithelial Cells Hyaline Casts Granular Casts Urine Mucus Urine Yeast 12/22/16 12/22/16 12/23/16 21:15 22:25 00:44 WBC RBC Hgb Hct MCV MCHC RDW Plt Count MPV Neutrophils % Lymphocytes % Monocytes % Eosinophils % Basophils % INR Sodium Potassium Chloride Carbon Dioxide Anion Gap BUN Creatinine Creat Clearance w eGFR POC Glucometer 176.93423 175.03929 Random Glucose Hemoglobin A1c % Lactic Acid Calcium Phosphorus Magnesium Total Bilirubin Direct Bilirubin AST ALT Alkaline Phosphatase Creatine Kinase Troponin I Total Protein Albumin Triglycerides Cholesterol Total LDL Cholesterol HDL Cholesterol Total Amylase Lipase TSH Free T4 Urine Color Straw Urine Appearance Clear Urine pH 5.0 Ur Specific [place] 1.015 Urine Protein 1+ H Urine Glucose (UA) 3+ H Urine Ketones 2+ H Urine Blood 1+ H Urine Nitrite Negative Urine Bilirubin Negative Urine Urobilinogen Negative Ur Leukocyte Esterase Negative Urine RBC 1 Urine WBC 3 Ur Epithelial Cells Rare Hyaline Casts 1 Granular Casts 1 Urine Mucus Rare Urine Yeast Rare 12/23/16 12/23/16 12/23/16 01:40 03:30 03:30 WBC 13.2 H RBC 4.70 Hgb 13.5 D Hct 40.2 D MCV 85.5 MCHC 33.5 RDW 14.8 Plt Count 231 MPV 9.1 Neutrophils % 67.0 D Lymphocytes % 24.1 D Monocytes % 7.7 Eosinophils % 0.6 D Basophils % 0.6 INR 1.16 H Sodium Potassium Chloride Carbon Dioxide Anion Gap BUN Creatinine Creat Clearance w eGFR POC Glucometer 171.49769 Random Glucose Hemoglobin A1c % Lactic Acid Calcium Phosphorus Magnesium Total Bilirubin Direct Bilirubin AST ALT Alkaline Phosphatase Creatine Kinase Troponin I Total Protein Albumin Triglycerides Cholesterol Total LDL Cholesterol HDL Cholesterol Total Amylase Lipase TSH Free T4 Urine Color Urine Appearance Urine pH Ur Specific [place] Urine Protein Urine Glucose (UA) Urine Ketones Urine Blood Urine Nitrite Urine Bilirubin Urine Urobilinogen Ur Leukocyte Esterase Urine RBC Urine WBC Ur Epithelial Cells Hyaline Casts Granular Casts Urine Mucus Urine Yeast 12/23/16 12/23/16 12/23/16 03:30 03:30 03:30 WBC RBC Hgb Hct MCV MCHC RDW Plt Count MPV Neutrophils % Lymphocytes % Monocytes % Eosinophils % Basophils % INR Sodium 140 Potassium 3.5 Chloride 110 H Carbon Dioxide 12 L Anion Gap 18 H BUN 6 L Creatinine 0.7 Creat Clearance w eGFR > 60 POC Glucometer Random Glucose 158 H D Hemoglobin A1c % 9.9 H Lactic Acid Calcium 8.3 L Phosphorus 1.7 L Magnesium 1.8 Total Bilirubin 1.3 H D Direct Bilirubin AST 53 H D ALT 116 H Alkaline Phosphatase 87 Creatine Kinase 63 Troponin I < 0.02 Total Protein 6.4 Albumin 3.5 Triglycerides Cholesterol Total LDL Cholesterol HDL Cholesterol Total Amylase 111 Lipase 575 H TSH Free T4 Urine Color Urine Appearance Urine pH Ur Specific [place] Urine Protein Urine Glucose (UA) Urine Ketones Urine Blood Urine Nitrite Urine Bilirubin Urine Urobilinogen Ur Leukocyte Esterase Urine RBC Urine WBC Ur Epithelial Cells Hyaline Casts Granular Casts Urine Mucus Urine Yeast 12/23/16 12/23/16 12/23/16 05:49 08:06 11:45 WBC 8.5 D RBC 4.48 Hgb 12.9 Hct 38.6 MCV 86.2 MCHC 33.5 RDW 15.0 Plt Count 203 MPV 9.3 Neutrophils % 61.4 Lymphocytes % 28.1 Monocytes % 8.7 Eosinophils % 1.0 Basophils % 0.8 INR Sodium Potassium Chloride Carbon Dioxide Anion Gap BUN Creatinine Creat Clearance w eGFR POC Glucometer 167.51200 125.05737 Random Glucose Hemoglobin A1c % Lactic Acid Calcium Phosphorus Magnesium Total Bilirubin Direct Bilirubin AST ALT Alkaline Phosphatase Creatine Kinase Troponin I Total Protein Albumin Triglycerides Cholesterol Total LDL Cholesterol HDL Cholesterol Total Amylase Lipase TSH Free T4 Urine Color Urine Appearance Urine pH Ur Specific [place] Urine Protein Urine Glucose (UA) Urine Ketones Urine Blood Urine Nitrite Urine Bilirubin Urine Urobilinogen Ur Leukocyte Esterase Urine RBC Urine WBC Ur Epithelial Cells Hyaline Casts Granular Casts Urine Mucus Urine Yeast 12/23/16 12/23/16 12/23/16 11:45 11:45 11:47 WBC RBC Hgb Hct MCV MCHC RDW Plt Count MPV Neutrophils % Lymphocytes % Monocytes % Eosinophils % Basophils % INR Sodium 139 Potassium 3.3 L Chloride 110 H Carbon Dioxide 11 L Anion Gap 18 H BUN 4 L D Creatinine 0.6 Creat Clearance w eGFR > 60 POC Glucometer 101.01166 Random Glucose 109 H D Hemoglobin A1c % Lactic Acid 0.661 Calcium 7.9 L Phosphorus 2.1 L D Magnesium 1.8 Total Bilirubin 1.3 H Direct Bilirubin AST 48 H ALT 109 H Alkaline Phosphatase 93 Creatine Kinase Troponin I Total Protein 6.2 L Albumin 3.3 L Triglycerides 95 Cholesterol 125 Total LDL Cholesterol 89 HDL Cholesterol 29 L Total Amylase 69 D Lipase TSH Free T4 Urine Color Urine Appearance Urine pH Ur Specific [place] Urine Protein Urine Glucose (UA) Urine Ketones Urine Blood Urine Nitrite Urine Bilirubin Urine Urobilinogen Ur Leukocyte Esterase Urine RBC Urine WBC Ur Epithelial Cells Hyaline Casts Granular Casts Urine Mucus Urine Yeast Active Medications Generic Name Dose Route Start Last Admin Trade Name Freq PRN Reason Stop Dose Admin Albuterol Sulfate 1 amp 12/23/16 04:01 Ventolin 0.083% Nebulizer Soln - NEB Q4H PRN SHORT OF BREATH/WHEEZING Enoxaparin Sodium 40 mg 12/23/16 10:00 12/23/16 09:45 Lovenox - SQ 40 mg DAILY [facility] Administration Pantoprazole Sodium 100 mls @ 200 mls/hr 12/22/16 16:15 12/23/16 09:44 Protonix 40mg Ivpb (Pre-Docked) IVPB 200 mls/hr DAILY [facility] Administration Lactated Ringer's 1,000 mls @ 175 mls/hr 12/23/16 05:02 12/23/16 05:15 Lactated Ringers Solution IV 175 mls/hr ASDIR [facility] Administration Insulin Aspart 1 vial 12/22/16 22:45 12/23/16 12:25 Novolog Vial Sliding Scale - SQ Not Given TIDAC [facility] Protocol Insulin Detemir 10 units 12/22/16 22:00 12/23/16 06:36 Levemir Vial SQ 10 units BID@0700,2200 [facility] Administration Morphine Sulfate 1 mg 12/23/16 05:04 12/23/16 05:14 Morphine Injection - IVPUSH 1 mg Q3H PRN Administration PAIN Imaging CT abd: 1. Normal CT scan of the pancreas with no evidence of mass lesions or acute/chronic pancreatitis. 2. Extensive diffuse fatty infiltration of the liver. 3. No acute pathology within the abdomen or pelvis. U/S abd: Fatty mildly enlarged liver. Pancreas is not visualized. No sonographic findings to suggest acute cholecystitis. Presence or absence of a sonographic Davey sign was not reported. Preliminary report given by Dr. Judd of Imaging solar applications development engineer on December 22, 2016 at 18:37 EST. CXR: clear ASSESSMENT/PLAN: 31 yo h/o HLD and DM admitted to the ICU for DKA and possible acute pancreatitis. Pulm: - no sign of URI - maintain O2 sat >92% - Incentive spirometer GI: likely acute pancreatitis 2/2 diabetic medication - CT negative - cont. IVF with LR - f/u amylase and lipase tomorrow AM - observe off abx - clear liquid diet Endo: DKA - DKA resolved - low bicarb * likely 2/2 pancreatitis - a1c 10 * will need to f/u with air conditioning mechanic industrial as outpatient after discharge - cont. levemir BID and sliding scale FEN - cont. hydration - low phos, K+ and bicarb, will monitor after starting diet - clear liquid diet, will advance if pt tolerates it Prophylaxis - DVT: lovenox - GI: protonix Disposition - transfer to med-surg Code status - Full code Visit type - Emergency Visit Emergency Visit: No - New Patient This patient is new to me today: Yes Date on this admission: 12/23/16 - Critical Care Critical Care patient: Yes Total Critical Care Time (in minutes): 45 Critical Care Statement: The care of this patient involved high complexity decision making to prevent further life threatening deterioration of the patient 's condition and/or to evalute & treat vital organ system(s) failure or risk of failure.
--- NOTE | 2016-12-23 17:39 | PN ---
Physical Exam: SUBJECTIVE: Patient seen and examined. She was laying in the bed, in no acute distress. Verbalizes abdominal pain/tenderness on palpation of RUQ and RLQ. Denies any nausea or vomiting. OBJECTIVE: Vital Signs Period Temp Pulse Resp BP Sys/Mandel Pulse Ox Last 24 Hr 97.6 F-98.4 F 85-98 14-22 94-132/64-81 100-100 GENERAL: The patient is awake, alert, and fully oriented, in no acute distress. HEAD: Normal with no signs of trauma. EYES: PERRL, extraocular movements intact, sclera anicteric, conjunctiva clear. No ptosis. ENT: Ears normal, nares patent, oropharynx clear without exudates, moist mucous membranes. NECK: Trachea midline, full range of motion, supple. LUNGS: Breath sounds equal, clear to auscultation bilaterally, no wheezes, no crackles, no accessory muscle use. HEART: Regular rate and rhythm ABDOMEN: abdominal pain/discomfort on palpation of right upper and lower quadrants EXTREMITIES: 2+ pulses, warm, well-perfused, no edema. NEUROLOGICAL: Normal speech, gait not observed. PSYCH: Normal mood, normal affect. SKIN: Warm, dry, normal turgor, no rashes or lesions noted Laboratory Results - last 24 hr 12/22/16 12/22/16 12/22/16 17:31 18:44 19:45 WBC RBC Hgb Hct MCV MCHC RDW Plt Count MPV Neutrophils % Lymphocytes % Monocytes % Eosinophils % Basophils % INR Sodium 138 Potassium 3.8 Chloride 112 H Carbon Dioxide 11 L D Anion Gap 15 BUN 5 L Creatinine 0.8 D Creat Clearance w eGFR POC Glucometer [phone] Random Glucose 104 D Hemoglobin A1c % Lactic Acid Calcium 8.0 L Phosphorus Magnesium Total Bilirubin Direct Bilirubin AST ALT Alkaline Phosphatase Creatine Kinase Troponin I Total Protein Albumin Triglycerides Cholesterol Total LDL Cholesterol HDL Cholesterol Total Amylase Lipase TSH 1.04 Free T4 Urine Color Urine Appearance Urine pH Ur Specific [place] Urine Protein Urine Glucose (UA) Urine Ketones Urine Blood Urine Nitrite Urine Bilirubin Urine Urobilinogen Ur Leukocyte Esterase Urine RBC Urine WBC Ur Epithelial Cells Hyaline Casts Granular Casts Urine Mucus Urine Yeast 12/22/16 12/22/16 12/22/16 19:45 19:45 19:45 WBC RBC Hgb Hct MCV MCHC RDW Plt Count MPV Neutrophils % Lymphocytes % Monocytes % Eosinophils % Basophils % INR Sodium 139 Potassium 3.8 Chloride 112 H Carbon Dioxide 11 L Anion Gap 16 BUN 5 L Creatinine 0.7 Creat Clearance w eGFR POC Glucometer Random Glucose 105 Hemoglobin A1c % Lactic Acid Calcium 8.1 L Phosphorus 1.5 L Magnesium 1.9 Total Bilirubin 1.0 D Direct Bilirubin 0.3 H AST 71 H ALT 142 H Alkaline Phosphatase 103 Creatine Kinase Troponin I Total Protein 7.0 Albumin 3.8 Triglycerides Cholesterol Total LDL Cholesterol HDL Cholesterol Total Amylase Lipase TSH Free T4 0.96 Urine Color Urine Appearance Urine pH Ur Specific [place] Urine Protein Urine Glucose (UA) Urine Ketones Urine Blood Urine Nitrite Urine Bilirubin Urine Urobilinogen Ur Leukocyte Esterase Urine RBC Urine WBC Ur Epithelial Cells Hyaline Casts Granular Casts Urine Mucus Urine Yeast 12/22/16 12/22/16 12/22/16 20:26 21:15 22:25 WBC RBC Hgb Hct MCV MCHC RDW Plt Count MPV Neutrophils % Lymphocytes % Monocytes % Eosinophils % Basophils % INR Sodium Potassium Chloride Carbon Dioxide Anion Gap BUN Creatinine Creat Clearance w eGFR POC Glucometer [phone] Random Glucose Hemoglobin A1c % Lactic Acid Calcium Phosphorus Magnesium Total Bilirubin Direct Bilirubin AST ALT Alkaline Phosphatase Creatine Kinase Troponin I Total Protein Albumin Triglycerides Cholesterol Total LDL Cholesterol HDL Cholesterol Total Amylase Lipase TSH Free T4 Urine Color Straw Urine Appearance Clear Urine pH 5.0 Ur Specific [place] 1.015 Urine Protein 1+ H Urine Glucose (UA) 3+ H Urine Ketones 2+ H Urine Blood 1+ H Urine Nitrite Negative Urine Bilirubin Negative Urine Urobilinogen Negative Ur Leukocyte Esterase Negative Urine RBC 1 Urine WBC 3 Ur Epithelial Cells Rare Hyaline Casts 1 Granular Casts 1 Urine Mucus Rare Urine Yeast Rare 12/23/16 12/23/16 12/23/16 00:44 01:40 03:30 WBC 13.2 H RBC 4.70 Hgb 13.5 D Hct 40.2 D MCV 85.5 MCHC 33.5 RDW 14.8 Plt Count 231 MPV 9.1 Neutrophils % 67.0 D Lymphocytes % 24.1 D Monocytes % 7.7 Eosinophils % 0.6 D Basophils % 0.6 INR Sodium Potassium Chloride Carbon Dioxide Anion Gap BUN Creatinine Creat Clearance w eGFR POC Glucometer [phone] Random Glucose Hemoglobin A1c % Lactic Acid Calcium Phosphorus Magnesium Total Bilirubin Direct Bilirubin AST ALT Alkaline Phosphatase Creatine Kinase Troponin I Total Protein Albumin Triglycerides Cholesterol Total LDL Cholesterol HDL Cholesterol Total Amylase Lipase TSH Free T4 Urine Color Urine Appearance Urine pH Ur Specific [place] Urine Protein Urine Glucose (UA) Urine Ketones Urine Blood Urine Nitrite Urine Bilirubin Urine Urobilinogen Ur Leukocyte Esterase Urine RBC Urine WBC Ur Epithelial Cells Hyaline Casts Granular Casts Urine Mucus Urine Yeast 12/23/16 12/23/16 12/23/16 03:30 03:30 03:30 WBC RBC Hgb Hct MCV MCHC RDW Plt Count MPV Neutrophils % Lymphocytes % Monocytes % Eosinophils % Basophils % INR 1.16 H Sodium 140 Potassium 3.5 Chloride 110 H Carbon Dioxide 12 L Anion Gap 18 H BUN 6 L Creatinine 0.7 Creat Clearance w eGFR > 60 POC Glucometer Random Glucose 158 H D Hemoglobin A1c % 9.9 H Lactic Acid Calcium 8.3 L Phosphorus 1.7 L Magnesium 1.8 Total Bilirubin 1.3 H D Direct Bilirubin AST 53 H D ALT 116 H Alkaline Phosphatase 87 Creatine Kinase Troponin I Total Protein 6.4 Albumin 3.5 Triglycerides Cholesterol Total LDL Cholesterol HDL Cholesterol Total Amylase Lipase TSH Free T4 Urine Color Urine Appearance Urine pH Ur Specific [place] Urine Protein Urine Glucose (UA) Urine Ketones Urine Blood Urine Nitrite Urine Bilirubin Urine Urobilinogen Ur Leukocyte Esterase Urine RBC Urine WBC Ur Epithelial Cells Hyaline Casts Granular Casts Urine Mucus Urine Yeast 12/23/16 12/23/16 12/23/16 03:30 05:49 08:06 WBC RBC Hgb Hct MCV MCHC RDW Plt Count MPV Neutrophils % Lymphocytes % Monocytes % Eosinophils % Basophils % INR Sodium Potassium Chloride Carbon Dioxide Anion Gap BUN Creatinine Creat Clearance w eGFR POC Glucometer [phone] Random Glucose Hemoglobin A1c % Lactic Acid Calcium Phosphorus Magnesium Total Bilirubin Direct Bilirubin AST ALT Alkaline Phosphatase Creatine Kinase 63 Troponin I < 0.02 Total Protein Albumin Triglycerides Cholesterol Total LDL Cholesterol HDL Cholesterol Total Amylase 111 Lipase 575 H TSH Free T4 Urine Color Urine Appearance Urine pH Ur Specific [place] Urine Protein Urine Glucose (UA) Urine Ketones Urine Blood Urine Nitrite Urine Bilirubin Urine Urobilinogen Ur Leukocyte Esterase Urine RBC Urine WBC Ur Epithelial Cells Hyaline Casts Granular Casts Urine Mucus Urine Yeast 12/23/16 12/23/16 12/23/16 11:45 11:45 11:45 WBC 8.5 D RBC 4.48 Hgb 12.9 Hct 38.6 MCV 86.2 MCHC 33.5 RDW 15.0 Plt Count 203 MPV 9.3 Neutrophils % 61.4 Lymphocytes % 28.1 Monocytes % 8.7 Eosinophils % 1.0 Basophils % 0.8 INR Sodium 139 Potassium 3.3 L Chloride 110 H Carbon Dioxide 11 L Anion Gap 18 H BUN 4 L D Creatinine 0.6 Creat Clearance w eGFR > 60 POC Glucometer Random Glucose 109 H D Hemoglobin A1c % Lactic Acid 0.661 Calcium 7.9 L Phosphorus 2.1 L D Magnesium 1.8 Total Bilirubin 1.3 H Direct Bilirubin AST 48 H ALT 109 H Alkaline Phosphatase 93 Creatine Kinase Troponin I Total Protein 6.2 L Albumin 3.3 L Triglycerides 95 Cholesterol 125 Total LDL Cholesterol 89 HDL Cholesterol 29 L Total Amylase 69 D Lipase TSH Free T4 Urine Color Urine Appearance Urine pH Ur Specific [place] Urine Protein Urine Glucose (UA) Urine Ketones Urine Blood Urine Nitrite Urine Bilirubin Urine Urobilinogen Ur Leukocyte Esterase Urine RBC Urine WBC Ur Epithelial Cells Hyaline Casts Granular Casts Urine Mucus Urine Yeast 12/23/16 11:47 WBC RBC Hgb Hct MCV MCHC RDW Plt Count MPV Neutrophils % Lymphocytes % Monocytes % Eosinophils % Basophils % INR Sodium Potassium Chloride Carbon Dioxide Anion Gap BUN Creatinine Creat Clearance w eGFR POC Glucometer 101.86206 Random Glucose Hemoglobin A1c % Lactic Acid Calcium Phosphorus Magnesium Total Bilirubin Direct Bilirubin AST ALT Alkaline Phosphatase Creatine Kinase Troponin I Total Protein Albumin Triglycerides Cholesterol Total LDL Cholesterol HDL Cholesterol Total Amylase Lipase TSH Free T4 Urine Color Urine Appearance Urine pH Ur Specific [place] Urine Protein Urine Glucose (UA) Urine Ketones Urine Blood Urine Nitrite Urine Bilirubin Urine Urobilinogen Ur Leukocyte Esterase Urine RBC Urine WBC Ur Epithelial Cells Hyaline Casts Granular Casts Urine Mucus Urine Yeast Active Medications Generic Name Dose Route Start Last Admin Trade Name Mary PRN Reason Stop Dose Admin Albuterol Sulfate 1 amp 12/23/16 04:01 Ventolin 0.083% Nebulizer Soln - NEB Q4H PRN SHORT OF BREATH/WHEEZING Enoxaparin Sodium 40 mg 12/23/16 10:00 12/23/16 09:45 Lovenox - SQ 40 mg DAILY EVELIN Administration Pantoprazole Sodium 100 mls @ 200 mls/hr 12/22/16 16:15 12/23/16 09:44 Protonix 40mg Ivpb (Pre-Docked) IVPB 200 mls/hr DAILY EVELIN Administration Lactated Ringer's 1,000 mls @ 175 mls/hr 12/23/16 05:02 12/23/16 05:15 Lactated Ringers Solution IV 175 mls/hr ASDIR EVELIN Administration Insulin Aspart 1 vial 12/22/16 22:45 12/23/16 12:25 Novolog Vial Sliding Scale - SQ Not Given TIDAC [facility] Protocol Insulin Detemir 10 units 12/22/16 22:00 12/23/16 06:36 Levemir Vial SQ 10 units BID@0700,2200 EVELIN Administration Morphine Sulfate 1 mg 12/23/16 05:04 12/23/16 05:14 Morphine Injection - IVPUSH 1 mg Q3H PRN Administration PAIN ASSESSMENT/PLAN: Patient is a 31 year old female with a significant past medical history of diabetes and hyperlipidemia. She was admitted to the ICU for DKA and to rule out acute pancreatitis. Patient was evaluated by her PCP last week for generalized weakness and reports that her blood sugars were elevated. She was started on two new home medications of Invokana and Tradjenta. She reports seeing an supervisor baking as an outpatient. Imaging CT abdomen 12/23/2016: CT scan of the pancreas with no evidence of mass lesions or acute/chronic pancreatitis. Extensive, diffuse fatty infiltration of the liver. No acute pathology seen. Abdominal ultrasound: shows fatty mildly enlarged liver. Pancreas is not visualized. No sonographic findings to suggest acute cholecystitis. GI: Acute Pancreatitis Assessment/Plan: CT of abdomen 12/23/16 shows no evidence of mass lesions or acute/chronic pancreatitis. Lipase elevated, will repeat amylase lipase in a.m. On clear liquid diet, advance as tolerated on Lactated Ringers IVF Endocrine: DKA - resolved Continue Levemir and sliding scale Anion gap Hyperglycemia - chronic Assessment/Plan: Hmga1C elevated @10, will need outpatient followup and monitoring On Levemir and Novolog F.E.N Fluids: lactated ringers Electrolytes: monitor BMP in a.m. labs Nutrition: Clears for now Prophylaxis DVT: lovenox 40mg GI: protonix IV Disposition: Can be transferred to med surg floor. Full Code. Visit type - Emergency Visit Emergency Visit: Yes ED Registration Date: 12/22/16 Care time: The patient presented to the Emergency Department on the above date and was hospitalized for further evaluation of their emergent condition. - New Patient This patient is new to me today: Yes Date on this admission: 02/22/17 - Critical Care Critical Care patient: Yes Total Critical Care Time (in minutes): 45 Critical Care Statement: The care of this patient involved high complexity decision making to prevent further life threatening deterioration of the patient 's condition and/or to evalute & treat vital organ system(s) failure or risk of failure. - Discharge Referral Referred to [facility] No
[2016-12-23] MEDS: LACTATED RINGERS SOLUTION 1,000 ML IV SCH (18:07)
[2016-12-23] MEDS ORDERED: BISMUTH SUBSALICYLATE 262 MG/15 ML BTL PO PRN (20:17)
[2016-12-24] MEDS: INSULIN DETEMIR 100 UNITS/ML MDV SQ SCH ×2 (07:10→22:25)
[2016-12-24] MEDS: INSULIN SLIDING SCALE (NOVOLOG) 1 VIAL SQ SCH ×3 (07:10→16:32)
[2016-12-24] MEDS ORDERED: PT OWN MED DRAWER 7, Y5N ONE ×2 (07:19→09:58)
[2016-12-24] MEDS ORDERED: INSULIN (NOVOLOG) ASPART 100 UNITS/ML 10ML VIAL ONE (07:19)
[2016-12-24 07:24] LABS: BASOPHIL 0.5 % (0-2.0); EOSINOPHIL 0.7 % (0-4.5); MCHC 33.8 g/dl (32.0-36.0); MEAN CELL VOLUME 85.8 fl (80-96); MEAN PLT VOLUME 9.5 fl (7.5-11.1); NEUTROPHILS 59.6 % (42.8-82.8); PLATELET COUNT 199 K/MM3 (134-434); RDW 14.8 % (11.6-15.6); WHITE BLOOD COUNT 7.6 K/mm3 (4.0-10.0)
[2016-12-24 08:11] LABS: ALBUMIN 3.6 g/dl (3.4-5.0); ALK PHOS 94 U/L (45-117); AMYLASE 53 U/L (25-115); ANION GAP 18 (8-16); BILIRUBIN,TOTAL 1.2 mg/dL (0.2-1.0); CALCIUM 8.1 mg/dL (8.5-10.1); CO2 11 mmol/L (21-32); CREATININE 0.6 mg/dL (0.55-1.02); GLUCOSE,RANDOM 134 mg/dL (74-106); SGOT/AST 51 U/L (15-37); SGPT/ALT 108 U/L (12-78); TOT PROT 6.9 g/dl (6.4-8.2)
[2016-12-24] MEDS ORDERED: POTASSIUM CHLORIDE 40 MEQ/30 ML UNIT DOSE CUP PO ONE (08:45)
[2016-12-24] MEDS: ENOXAPARIN NA (PORCINE) 40 MG/0.4 ML DISP.SYRIN SQ SCH (10:57)
[2016-12-24] MEDS: PANTOPRAZOLE SODIUM 100 ML IVPB SCH (10:57)
[2016-12-24] MEDS ORDERED: POTASSIUM CHLORIDE 40 MEQ/30 ML UNIT DOSE CUP ONE (10:58)
[2016-12-24] MEDS: LACTATED RINGERS SOLUTION 1,000 ML IV SCH (16:27)
--- NOTE | 2016-12-24 16:32 | PN ---
Physical Exam: SUBJECTIVE: Patient seen and examined. She states she feels better, denies any nausea or vomiting. Tolerating her meals. States abdominal pain has subsided but reports intermittent "burning" of epigastric region. OBJECTIVE: GENERAL: The patient is awake, alert, and fully oriented, in no acute distress. HEAD: Normal with no signs of trauma. EYES: PERRL, extraocular movements intact, sclera anicteric, conjunctiva clear. No ptosis. ENT: Ears normal, nares patent, oropharynx clear without exudates, moist mucous membranes. NECK: Trachea midline, full range of motion, supple. LUNGS: Breath sounds equal, clear to auscultation bilaterally, no wheezes, no crackles, no accessory muscle use. HEART: Regular rate and rhythm ABDOMEN: No abdominal pain/discomfort reported. No pain on deep palpation of all 4 quadrants. Abdomen is non distended, + bowel sounds. EXTREMITIES: 2+ pulses, warm, well-perfused, no edema. NEUROLOGICAL: Normal speech, gait not observed. PSYCH: Normal mood, normal affect. SKIN: Warm, dry, normal turgor, no rashes or lesions noted Vital Signs Period Temp Pulse Resp BP Sys/Mandel Pulse Ox Last 24 Hr 98 F-98.7 F 90-98 14-20 117-128/69-78 100-100 Laboratory Results - last 24 hr 12/22/16 12/23/16 12/23/16 19:45 17:17 21:12 WBC RBC Hgb Hct MCV MCHC RDW Plt Count MPV Neutrophils % Lymphocytes % Monocytes % Eosinophils % Basophils % Sodium Potassium Chloride Carbon Dioxide Anion Gap BUN Creatinine Creat Clearance w eGFR POC Glucometer 178.55449 124 Random Glucose Calcium Total Bilirubin AST ALT Alkaline Phosphatase Total Protein Albumin Total Amylase Lipase Hepatitis A IgM Ab Negative Hep Bs Antigen Negative Hep B Core IgM Ab Negative Hepatitis C Ab (EIA) <0.1 12/24/16 12/24/16 12/24/16 05:35 05:35 06:00 WBC 7.6 RBC 4.89 Hgb 14.2 D Hct 42.0 MCV 85.8 MCHC 33.8 RDW 14.8 Plt Count 199 MPV 9.5 Neutrophils % 59.6 Lymphocytes % 30.2 Monocytes % 9.0 Eosinophils % 0.7 Basophils % 0.5 Sodium 138 Potassium 3.4 L Chloride 109 H Carbon Dioxide 11 L Anion Gap 18 H BUN 4 L Creatinine 0.6 Creat Clearance w eGFR > 60 POC Glucometer 131 Random Glucose 134 H D Calcium 8.1 L Total Bilirubin 1.2 H AST 51 H ALT 108 H Alkaline Phosphatase 94 Total Protein 6.9 Albumin 3.6 Total Amylase 53 D Lipase 418 H Hepatitis A IgM Ab Hep Bs Antigen Hep B Core IgM Ab Hepatitis C Ab (EIA) 12/24/16 11:11 WBC RBC Hgb Hct MCV MCHC RDW Plt Count MPV Neutrophils % Lymphocytes % Monocytes % Eosinophils % Basophils % Sodium Potassium Chloride Carbon Dioxide Anion Gap BUN Creatinine Creat Clearance w eGFR POC Glucometer 102 Random Glucose Calcium Total Bilirubin AST ALT Alkaline Phosphatase Total Protein Albumin Total Amylase Lipase Hepatitis A IgM Ab Hep Bs Antigen Hep B Core IgM Ab Hepatitis C Ab (EIA) Active Medications Generic Name Dose Route Start Last Admin Trade Name Freq PRN Reason Stop Dose Admin Albuterol Sulfate 1 amp 12/23/16 17:54 Ventolin 0.083% Nebulizer Soln - NEB Q4H PRN SHORT OF BREATH/WHEEZING Bismuth Subsalicylate 15 ml 12/23/16 20:17 Pepto-Bismol Liquid - PO BID PRN DYSPEPSIA Enoxaparin Sodium 40 mg 12/24/16 10:00 12/24/16 10:57 Lovenox - SQ 40 mg DAILY EVELIN Administration Pantoprazole Sodium 100 mls @ 200 mls/hr 12/24/16 10:00 12/24/16 10:57 Protonix 40mg Ivpb (Pre-Docked) IVPB 200 mls/hr DAILY EVELIN Administration Lactated Ringer's 1,000 mls @ 100 mls/hr 12/23/16 18:01 12/23/16 18:07 Lactated Ringers Solution IV 100 mls/hr ASDIR EVELIN Administration Insulin Aspart 1 vial 12/24/16 07:00 12/24/16 11:10 Novolog Vial Sliding Scale - SQ Not Given TIDAC [facility] Protocol Insulin Detemir 10 units 12/23/16 22:00 12/24/16 07:10 Levemir Vial SQ 10 units BID@0700,2200 EVELIN Administration Morphine Sulfate 1 mg 12/23/16 17:54 Morphine Injection - IVPUSH Q3H PRN PAIN ASSESSMENT/PLAN: Patient is a 31 year old female with a significant past medical history of diabetes and hyperlipidemia. She was admitted to the ICU for DKA and to rule out acute pancreatitis. Patient was evaluated by her PCP last week for generalized weakness and reports that her blood sugars were elevated. She was started on two new home medications of Invokana and Tradjenta. 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 Imaging: (1) CT abdomen 12/23/2016: CT scan of the pancreas with no evidence of mass lesions or acute/chronic pancreatitis. Extensive, diffuse fatty infiltration of the liver. No acute pathology seen. (2) Abdominal ultrasound: shows fatty mildly enlarged liver. Pancreas is not visualized. No sonographic findings to suggest acute cholecystitis. GI: Acute Pancreatitis - likely secondary to new diabetic medications - improving Assessment/Plan: CT of abdomen 12/23/16 shows no evidence of mass lesions or acute/chronic pancreatitis. Lipase 575> 418 Amylase stable Monitor off antibiotics, WBC within normal limits Tolerated clears, diet advanced to regular diabetic Elevated Liver Enzymes - improving Assessment/Plan: AST 97 > 51, ALT 180 > 108 continue to monitor trend Endocrine: DKA - resolved Continue Levemir and sliding scale Monitor BGMs Hyperglycemia - chronic Assessment/Plan: Hmga1C elevated @10, will need outpatient followup and monitoring On Levemir and Novolog Monitor BGMs F.E.N Fluids: tolerating PO Electrolytes: Hypokalemia 3.4, repleted with 40 MEQ PO x 1 Nutrition: diabetic regular diet Prophylaxis DVT: lovenox 40mg GI: protonix IV Disposition: Potential discharge tomorrow if continues to improve. Full Code. Visit type - Emergency Visit Emergency Visit: Yes ED Registration Date: 12/22/16 Care time: The patient presented to the Emergency Department on the above date and was hospitalized for further evaluation of their emergent condition. - New Patient This patient is new to me today: No - Critical Care Critical Care patient: No - Discharge Referral Referred to [facility] No
[2016-12-25 00:09] LABS: HEP B SURFACE AB Non Reactive (.)
[2016-12-25] MEDS: LACTATED RINGERS SOLUTION 1,000 ML IV SCH (04:13)
[2016-12-25] MEDS ORDERED: INSULIN (NOVOLOG) ASPART 100 UNITS/ML 10ML VIAL ONE ×2 (06:05→11:00)
[2016-12-25] MEDS: INSULIN DETEMIR 100 UNITS/ML MDV SQ SCH (06:29)
[2016-12-25] MEDS: INSULIN SLIDING SCALE (NOVOLOG) 1 VIAL SQ SCH ×2 (06:29→11:21)
[2016-12-25 08:22] LABS: BASOPHIL 0.5 % (0-2.0); EOSINOPHIL 1.2 % (0-4.5); MCH 28.8 pg (25.7-33.7); MCHC 33.6 g/dl (32.0-36.0); MEAN CELL VOLUME 85.6 fl (80-96); MEAN PLT VOLUME 9.2 fl (7.5-11.1); NEUTROPHILS 52.9 % (42.8-82.8); PLATELET COUNT 205 K/MM3 (134-434); RDW 14.6 % (11.6-15.6); WHITE BLOOD COUNT 5.9 K/mm3 (4.0-10.0)
[2016-12-25 08:50] LABS: ALBUMIN 3.3 g/dl (3.4-5.0); AMYLASE 49 U/L (25-115); ANION GAP 16 (8-16); CO2 14 mmol/L (21-32); GLUCOSE,RANDOM 158 mg/dL (74-106); SGOT/AST 33 U/L (15-37); SGPT/ALT 82 U/L (12-78)
[2016-12-25 08:52] LABS: ALK PHOS 92 U/L (45-117); BILIRUBIN,TOTAL 1.2 mg/dL (0.2-1.0); CALCIUM 8.3 mg/dL (8.5-10.1); CREATININE 0.6 mg/dL (0.55-1.02); TOT PROT 6.5 g/dl (6.4-8.2)
[2016-12-25] MEDS: ENOXAPARIN NA (PORCINE) 40 MG/0.4 ML DISP.SYRIN SQ SCH (09:29)
[2016-12-25] MEDS: PANTOPRAZOLE SODIUM 100 ML IVPB SCH (09:29)
[2016-12-25] MEDS ORDERED: POTASSIUM CHLORIDE TABS 20 MEQ TABLET.ER (FP) PO ONE (11:00)
--- NOTE | 2016-12-25 11:12 | DS ---
Physical Exam: SUBJECTIVE: Patient seen and examined. States she wants to be discharged home. She denies any nausea/vomiting or abdominal pain. I went over the importance of following the novolog sliding scale with patient. pt verbalized understanding, teachback successful. OBJECTIVE: Vital Signs Period Temp Pulse Resp BP Sys/Mandel Pulse Ox Last 24 Hr 98.3 F-98.8 F 75-95 16-20 117-125/60-78 95-100 PHYSICAL EXAM GENERAL: The patient is awake, alert, and fully oriented, in no acute distress. HEAD: Normal with no signs of trauma. EYES: PERRL, extraocular movements intact, sclera anicteric, conjunctiva clear. No ptosis. ENT: Ears normal, nares patent, oropharynx clear without exudates, moist mucous membranes. NECK: Trachea midline, full range of motion, supple. LUNGS: Breath sounds equal, clear to auscultation bilaterally, no wheezes, no crackles, no accessory muscle use. HEART: Regular rate and rhythm ABDOMEN: No abdominal pain/discomfort reported. No pain on deep palpation of all 4 quadrants. Abdomen is non distended, + bowel sounds. EXTREMITIES: 2+ pulses, warm, well-perfused, no edema. NEUROLOGICAL: Normal speech, steady gait. PSYCH: Normal mood, normal affect. SKIN: Warm, dry, normal turgor, no rashes or lesions noted LABS Laboratory Results - last 24 hr 12/22/16 12/24/16 12/24/16 19:45 11:11 16:29 WBC RBC Hgb Hct MCV MCHC RDW Plt Count MPV Neutrophils % Lymphocytes % Monocytes % Eosinophils % Basophils % Sodium Potassium Chloride Carbon Dioxide Anion Gap BUN Creatinine Creat Clearance w eGFR POC Glucometer 102 115 Random Glucose Calcium Total Bilirubin AST ALT Alkaline Phosphatase Total Protein Albumin Total Amylase Lipase Hep A IgM Ab Confirm Negative Hepatitis A Ab Total Positive H Hep Bs Antigen Negative Hep Bs Antibody Non reactive Hep B Core Total Ab Positive H 12/24/16 12/25/16 12/25/16 22:14 06:26 07:00 WBC 5.9 RBC 4.69 Hgb 13.5 Hct 40.2 MCV 85.6 MCHC 33.6 RDW 14.6 Plt Count 205 MPV 9.2 Neutrophils % 52.9 Lymphocytes % 34.8 Monocytes % 10.6 H Eosinophils % 1.2 Basophils % 0.5 Sodium Potassium Chloride Carbon Dioxide Anion Gap BUN Creatinine Creat Clearance w eGFR POC Glucometer 143 154 Random Glucose Calcium Total Bilirubin AST ALT Alkaline Phosphatase Total Protein Albumin Total Amylase Lipase Hep A IgM Ab Confirm Hepatitis A Ab Total Hep Bs Antigen Hep Bs Antibody Hep B Core Total Ab 12/25/16 07:00 WBC RBC Hgb Hct MCV MCHC RDW Plt Count MPV Neutrophils % Lymphocytes % Monocytes % Eosinophils % Basophils % Sodium 140 Potassium 3.2 L Chloride 110 H Carbon Dioxide 14 L D Anion Gap 16 BUN 6 L D Creatinine 0.6 Creat Clearance w eGFR > 60 POC Glucometer Random Glucose 158 H Calcium 8.3 L Total Bilirubin 1.2 H AST 33 D ALT 82 H D Alkaline Phosphatase 92 Total Protein 6.5 Albumin 3.3 L Total Amylase 49 Lipase 584 H Hep A IgM Ab Confirm Hepatitis A Ab Total Hep Bs Antigen Hep Bs Antibody Hep B Core Total Ab HOSPITAL COURSE: Date of Admission:12/22/16 Date of Discharge: 12/25/16 ASSESSMENT/PLAN: Patient is a 31 year old female with a significant past medical history of diabetes and hyperlipidemia. She was admitted to the ICU for DKA and to rule out acute pancreatitis. Patient was evaluated by her PCP last week for generalized weakness and reports that her blood sugars were elevated. She was started on two new home medications of Invokana and Tradjenta. She reports seeing an party plan sales host/hostess as an outpatient. Imaging: (1) CT abdomen 12/23/2016: CT scan of the pancreas with no evidence of mass lesions or acute/chronic pancreatitis. Extensive, diffuse fatty infiltration of the liver. No acute pathology seen. (2) Abdominal ultrasound: shows fatty mildly enlarged liver. Pancreas is not visualized. No sonographic findings to suggest acute cholecystitis. GI: Acute Pancreatitis rule out - likely secondary to new diabetic medications Assessment/Plan: CT of abdomen 12/23/16 shows no evidence of mass lesions or acute/chronic pancreatitis. Lipase 575> 584 but patient denies abdominal pain, tenderness. She denies any nausea or vomiting and is tolerating meals. Amylase remains stable WBC within normal limits Tolerated regular diabetic diet Needs close PCP follow up. Elevated Liver Enzymes - improving Assessment/Plan: AST 97 > 33, ALT 180 > 82 Endocrine: DKA - resolved Continue Levemir and sliding scale as outpatient, primary RN teaching pt how to self inject. Monitor BGMs Hyperglycemia - chronic Assessment/Plan: Hmga1C elevated @10, will need outpatient followup and monitoring Unloader Operator follow up as outpatient HypoKalemia - 3.2 repleted with 40MEQ of PO K x 1 Pt is asking for a new PCP referral, referral placed as per pt's request. Discharge home, plan as follows: Stop taking the Invokana and Tradjenta Monitor your blood sugars before meals and at bedtime Start with Novolog insulin sliding scale pen and Levemir pen Important to follow up with your Unloader Operator as an outpatient and with your PCP Dr. Reynoso. Minutes to complete discharge: 60 Discharge Summary Reason For Visit: ACETONEMIA DIABETES METABOLIC ACIDOSIS Current Active Problems Acetonemia due to secondary diabetes mellitus (Acute) Hyperglycemia (Acute) Metabolic acidosis (Acute) Nausea & vomiting (Acute) Weakness (Acute) Condition: Improved - Instructions Diet, Activity, Other Instructions: Please take Levemir 10 units at 0700a.m. and 11p.m. Insulin sliding scale: Novolog Blood sugar 80-150 - do not take Novolog, but please take the Levemir as directed 151-200 take 1 unit of Novolog 201-250 take 2 units of Novolog 251-300 take 3 units of Novolog 301-350 take 4 units of Novolog 351-400 take 5 units of Novolog if higher than 350 please report to your PCP Discharge home, plan as follows: Stop taking the Invokana and Tradjenta Monitor your blood sugars before meals and at bedtime Start with Novolog insulin sliding scale pen and Levemir pen as directed above Important to follow up with your Unloader Operator as an outpatient and with your PCP Dr. Reynoso. Please call Meghan Fuentes NP if you have any questions [phone] Referrals: Peña Mcdermott MD [Staff Physician] - Disposition: HOME - Home Medications Comprehensive Discharge Medication List: Ambulatory Orders Calcium Carbonate/Vitamin D3 [Calcium 600+D Softgel] 1 each PO DAILY 12/22/16 Insulin (Levemir) [Levemir Flexpen -] 10 units SQ BID #1 pen 12/25/16 Insulin Aspart [Novolog Flexpen] 100 unit SQ ACHS #1 insuln.pen 12/25/16 This patient is new to me today: No Emergency Visit: Yes ED Registration Date: 12/22/16 Care time: The patient presented to the Emergency Department on the above date and was hospitalized for further evaluation of their emergent condition. Critical Care patient: No - Discharge Referral Referred to [facility] Yes Physician Referral: Peña Jose MD ([facility])
[2016-12-25 15:33] VITALS: BP 108/63; PULSE 103; TEMP 98.7
== END 2016-12-25 16:23 | disposition home or self-care (01) | DRG 282 ==
LOC: JER 11:33 → JERBED 14:29 → JICU 19:46 → J5S 12-23 20:21
PROVIDERS: ADMIT Internal Medicine; ATTEND Nurse Practitioner Family
DX: K85.30 Drug induced acute pancreatitis without necrosis or infection (principal); E13.10 Other specified diabetes mellitus with ketoacidosis without coma; R74.0 Nonspecific elevation of levels of transaminase and lactic acid dehydrogenase [LDH]; E87.2 Acidosis; E78.5 Hyperlipidemia, unspecified; K76.0 Fatty (change of) liver, not elsewhere classified; R00.0 Tachycardia, unspecified; E87.8 Other disorders of electrolyte and fluid balance, not elsewhere classified; E86.0 Dehydration; E66.01 Morbid (severe) obesity due to excess calories; Z68.39 Body mass index [BMI] 39.0-39.9, adult; Z71.3 Dietary counseling and surveillance
CPT/HCPCS: 36415; 71010-TC; 74178-TC; 76705-TC; 80048; 80053; 80061; 80074; 80076; 81003; 81015; 82009; 82150; 82550; 83036; 83605; 83690; 83721; 83735; 84100; 84439; 84443; 84484; 84703; 85025; 85610; 86704; 86706; 86708; 87040; 87086; 87254; 87340; 87804; 90732; 93005; 93010; 99285-25; G0008; G0009; Q2037; Q9967

== ENCOUNTER 2019-05-26 23:35 | Emergency (ER) | payer OTHER ==
[2019-05-27 00:11] VITALS: BP 119/70; PULSE 75; TEMP 98.2; BMI 31.1
--- NOTE | 2019-05-27 00:30 | PDOC ---
Attending Attestation - Resident Resident Name: Rupesh Mendoza - ED Attending Attestation I have performed the following: I have examined & evaluated the patient, The case was reviewed & discussed with the resident, I agree w/resident's findings & plan - HPI HPI: 05/27/19 02:06 34-year-old female currently approximately 9 weeks by dates with intermittent abdominal pain 05/27/19 02:07 - Physicial Exam PE: 05/27/19 02:08 agree with resident exam - Medical Decision Making 05/27/19 02:07 Ultrasound shows a approximate 6 week live IUP Patient is afebrile with no leukocytosis and no suggestion of urinary tract infection Pelvic exam was within normal limits On reevaluation after IV fluids patient is pain-free She will be discharged home to follow-up with her CLAIMS ADJUDICATOR
[2019-05-27] MEDS ORDERED: SODIUM CHLORIDE 1,000 ML IV STA (00:53)
[2019-05-27] MEDS ORDERED: FAMOTIDINE 20 MG/50 ML IVPB 20 MG/50 ML MG IVPB ONE ×2 (00:53→01:04)
--- NOTE | 2019-05-27 00:57 | PDOC ---
History of Present Illness - General Chief Complaint: Pain, Acute Stated Complaint: ABD PAIN/ 9 WEEKS Time Seen by Provider: 05/27/19 00:22 History Source: Patient Exam Limitations: No Limitations - History of Present Illness Initial Comments: 05/27/19 00:54 34 yo female 1 miscarriage currently approx 9 weeks preg presents to the ED for 2 weeks of intermittent midline abdominal pain. Pt states her miscarriage presented with similar quality of pain 1 year ago and she past the fetus in the toilet. Pt describes the pain as pressure, intermittent across the lower abdomen bilaterally. Denies N/V/F/C, new back pain, CP, SOB or changes in bowel or bladder habits. Denies vaginal bleeding or vaginal symptoms Past History - Past Medical History Allergies/Adverse Reactions: Allergies Allergy/AdvReac Type Severity Reaction Status Date / Time No Known Allergies Allergy Verified 05/27/19 00:02 Home Medications: Ambulatory Orders Calcium Carbonate/Vitamin D3 [Calcium 600+D Softgel] 1 each PO DAILY 12/22/16 Insulin (Levemir) [Levemir Flexpen -] 10 units SQ BID #1 pen 12/25/16 Insulin Aspart [Novolog Flexpen] 100 unit SQ ACHS #1 insuln.pen 12/25/16 Diabetes: Yes - Suicide/Smoking/Psychosocial Hx Smoking History: Never smoked Have you smoked in the past 12 months: No Information on smoking cessation initiated: No Hx Alcohol Use: No Drug/Substance Use Hx: No *Physical Exam - Vital Signs Last Vital Signs Temp Pulse Resp BP Pulse Ox 98.2 F 75 18 119/70 98 05/27/19 00:02 05/27/19 00:02 05/27/19 00:02 05/27/19 00:02 05/27/19 00:02 ED Treatment Course - LABORATORY CBC & Chemistry Diagram: 05/27/19 01:50 05/27/19 00:52 - RADIOLOGY Radiology Studies Ordered: Category Date Time Status <14WKS US [US] Stat Ultrasound 05/27/19 00:30 Ordered Medical Decision Making - Medical Decision Making 05/27/19 02:29 TV US shows live IUP with FHR in the 150s pt abdominal pain subsided prior to Tylenol administration Not localized pain, no fevers, no WBC Pt states she feels much better and will f/u with ACADEMIC SPECIALIST 05/27/19 02:32 pelvic exam: OS closed, no discharge/blood, no adnexal tenderness or CMT *DC/Admit/Observation/Transfer Diagnosis at time of Disposition: Abdominal pain - Discharge Dispostion Disposition: HOME Condition at time of disposition: Stable Decision to Admit order: No - Referrals Referrals: Giselle Quinones CNM [Primary Care Provider] - - Patient Instructions Additional Instructions: Please see your Primary Doctor and your ACADEMIC SPECIALIST doctor within the next 48 hours. Your ultrasound showed a normal live intrauterine . Take over the counter Tylenol for pain. Return to the ER for new or concerning symptoms including but not limited to: abdominal pain, high fevers, inability to eat or drink, vaginal discharge. Thank you - Post Discharge Activity
[2019-05-27 01:20] LABS: PH,URINE 7.5 (5.0-8.0); URINE APPEARANCE CLEAR; URINE BILIRUBIN NEGATIVE (NEGATIVE); URINE COLOR YELLOW; URINE GLUCOSE (UA) 3+ (NEGATIVE); URINE KETONE TRACE (NEGATIVE); URINE LEUK ESTERASE NEGATIVE (NEGATIVE); URINE NITRITE NEGATIVE (NEGATIVE); URINE PROTEIN NEGATIVE (NEGATIVE)
[2019-05-27] MEDS ORDERED: ACETAMINOPHEN 1000 MG/100 ML VIAL (NON FORMULARY) IVPB ONE (01:26)
[2019-05-27 01:30] LABS: INR 0.96 (0.83-1.09); PROTHROMBIN TIME (PATIENT) 11.3 SEC (9.7-13.0)
[2019-05-27 01:49] LABS: BASO % 0.2 % (0-2.0); EOS % 2.4 % (0-4.5); HEMATOCRIT 40.3 % (32.4-45.2); HEMOGLOBIN 13.6 GM/dL (10.7-15.3); LYMPH % 27.4 % (8-40); MCH 29.9 pg (25.7-33.7); MCHC 33.9 g/dl (32.0-36.0); MEAN CELL VOLUME 88.3 fl (80-96); MONO % 5.5 % (3.8-10.2); NEUT % 64.5 % (42.8-82.8); PLATELET COUNT 251 K/MM3 (134-434); RBC 4.56 M/mm3 (3.60-5.2); RDW 13.6 % (11.6-15.6); WHITE BLOOD COUNT 9.5 K/mm3 (4.0-10.0)
[2019-05-27] MEDS ORDERED: ACETAMINOPHEN INJECTION 100 ML IVPB ONE (01:54)
[2019-05-27 01:58] LABS: ALBUMIN 3.3 g/dl (3.4-5.0); BILIRUBIN,TOTAL 0.6 mg/dL (0.2-1); BLOOD UREA NITROGEN 14.9 mg/dL (7-18); CALCIUM 8.9 mg/dL (8.5-10.1); CREATININE 0.8 mg/dL (0.55-1.3); POTASSIUM 4.1 mmol/L (3.5-5.1); TOT PROT 6.7 g/dl (6.4-8.2)
== END 2019-05-27 02:36 | disposition home or self-care (01) ==
LOC: JER 23:35
PROC: 3E033NZ Introduction of Analgesics, Hypnotics, Sedatives into Peripheral Vein, Percutaneous Approach (ICD-10-PCS; principal; 2019-05-26)
PROC: 3E033GC Introduction of Other Therapeutic Substance into Peripheral Vein, Percutaneous Approach (ICD-10-PCS; 2019-05-26)
PROC: 3E0337Z Introduction of Electrolytic and Water Balance Substance into Peripheral Vein, Percutaneous Approach (ICD-10-PCS; 2019-05-26)
DX: O26.891 Other specified pregnancy related conditions, first trimester (principal); R10.84 Generalized abdominal pain; Z3A.09 9 weeks gestation of pregnancy
CPT/HCPCS: 36415; 76801-TC; 80053; 81003; 84702; 85025; 85610; 85730; 86850; 86900; 86901; 99283-25; J0131; J7030

== ENCOUNTER 2019-08-04 08:18 | Emergency (ER) | payer OTHER ==
[2019-08-04 08:24] VITALS: BMI 43.5
[2019-08-04] MEDS ORDERED: SODIUM CHLORIDE 1,000 ML IV STA (09:29)
[2019-08-04 09:57] LABS: BASO % 0.3 % (0-2.0); EOS % 1.3 % (0-4.5); HEMATOCRIT 36.7 % (32.4-45.2); HEMOGLOBIN 12.3 GM/dL (10.7-15.3); LYMPH % 19.1 % (8-40); MCH 29.8 pg (25.7-33.7); MCHC 33.6 g/dl (32.0-36.0); MEAN CELL VOLUME 88.6 fl (80-96); MONO % 5.8 % (3.8-10.2); NEUT % 73.5 % (42.8-82.8); PLATELET COUNT 258 K/MM3 (134-434); RBC 4.14 M/mm3 (3.60-5.2); RDW 13.7 % (11.6-15.6); WHITE BLOOD COUNT 8.5 K/mm3 (4.0-10.0)
[2019-08-04 09:58] LABS: PH,URINE 6.5 (5.0-8.0); URINE APPEARANCE CLEAR; URINE BILIRUBIN NEGATIVE (NEGATIVE); URINE COLOR YELLOW; URINE GLUCOSE (UA) 3+ (NEGATIVE); URINE KETONE NEGATIVE (NEGATIVE); URINE LEUK ESTERASE NEGATIVE (NEGATIVE); URINE NITRITE NEGATIVE (NEGATIVE); URINE PROTEIN NEGATIVE (NEGATIVE); URINE UROBILINOGEN 0.2 mg/dL (0.2-1.0)
[2019-08-04] MEDS ORDERED: LIDOCAINE VISCOUS 2% ORAL/TOP 20 ML UNIT-DOSE CUP ONE (10:00)
[2019-08-04] MEDS ORDERED: MAG HYDROX/AL HYDROX/SIMETH 30 ML UNIT-DOSE CUP ONE (10:00)
[2019-08-04] MEDS ORDERED: diphenhydrAMINE HCL 12.5 MG/5 ML BULK BOTTLE ONE (10:00)
[2019-08-04 10:26] LABS: BILIRUBIN,TOTAL 0.5 mg/dL (0.2-1); BLOOD UREA NITROGEN 9.2 mg/dL (7-18); CALCIUM 8.4 mg/dL (8.5-10.1); CREATININE 0.5 mg/dL (0.55-1.3); POTASSIUM 4.3 mmol/L (3.5-5.1); TOT PROT 6.6 g/dl (6.4-8.2)
[2019-08-04 12:12] VITALS: BP 119/75; PULSE 77; TEMP 98.4
--- NOTE | 2019-08-04 13:13 | PDOC ---
Documentation entered by Marilee Haque SCRIBE, acting as scribe for Hi Fritz MD. Hi Fritz MD: This documentation has been prepared by the Garland harris Sammi, SCRIBE, under my direction and personally reviewed by me in its entirety. I confirm that the documentation accurately reflects all work, treatment, procedures, and medical decision making performed by me. History of Present Illness - General Chief Complaint: Pain Stated Complaint: 16WKS/ ABD.PAIN Time Seen by Provider: 08/04/19 08:59 - History of Present Illness Initial Comments: 08/04/19 09:42 The patient is a 34 year old, nauruan speaking, , at 16 week gestation by lmp, female who presents for evaluation of 2 days of bilateral abdominal pain. Denies nausea, vomiting, constipation or diarrhea. Denies vaginal bleeding or dysuria. Patient follows with a specialist in [place] for high risk pregnacy due to diabetes. Medical history: ectopic x1, IDDM OB: 2 monica witt 08/04/19 13:07 Past History - Past Medical History Allergies/Adverse Reactions: Allergies Allergy/AdvReac Type Severity Reaction Status Date / Time No Known Allergies Allergy Verified 08/04/19 08:26 Home Medications: Ambulatory Orders Insulin (Levemir) [Levemir Flexpen -] 40 units SQ BID 08/04/19 Insulin Aspart [Novolog Flexpen] 0 unit SQ ACHS 08/04/19 COPD: No Diabetes: Yes - Reproductive History Is Patient Now?: Yes (#): 4 Para: 2 Therapeutic (s) & number: No - Immunization History Immunization Up to Date: Yes - Psycho Social/Smoking Cessation Hx Smoking History: Never smoked Have you smoked in the past 12 months: No Information on smoking cessation initiated: No Hx Alcohol Use: No Drug/Substance Use Hx: No Review of Systems - Review of Systems Comments:: 08/04/19 09:42 CONSTITUTIONAL: No fever, no chills, no fatigue CARDIOVASCULAR: No chest pain, no palpitations RESPIRATORY: No cough, no SOB GI: +bilateral abdominal pain. no nausea, no vomiting, no constipation, no diarrhea GENITOURINARY: No dysuria, no frequency, no hematuria MUSKULOSKELETAL: No backpain, no joint pain, no myalgias SKIN: No rash NEURO: No headache *Physical Exam - Vital Signs Last Vital Signs Temp Pulse Resp BP Pulse Ox 98 F 75 19 113/84 100 08/04/19 08:22 08/04/19 08:22 08/04/19 08:22 08/04/19 08:22 08/04/19 08:22 - Physical Exam Comments: 08/04/19 09:42 CONSTITUTIONAL: Well-appearing; well-nourished; in no apparent distress EYES: perrla, OEMI ENMT: wnl NECK: no jvd, supple CARD: Normal S1, S2; no murmurs, rubs, or gallops RESP: Normal chest excursion with respiration; breath sounds clear and equal bilaterally; no wheezes, rhonchi, or rales ABD: +bilateral mild tenderness +suprapbic tenderness. +uterine fundus palpated 2 cm below umbilicus EXT: Normal ROM in all four extremities; non-tender to palpation; distal pulses intact SKIN: Warm, dry, no rash NEURO: No focal neurological deficiencies. ED Treatment Course - LABORATORY CBC & Chemistry Diagram: 08/04/19 09:42 08/04/19 09:42 - ADDITIONAL ORDERS Additional order review: Laboratory Results 08/04/19 08/04/19 08/04/19 09:42 09:42 09:42 Sodium 139 Potassium 4.3 Chloride 108 H Carbon Dioxide 22 Anion Gap 9 BUN 9.2 Creatinine 0.5 L Est GFR (CKD-EPI)AfAm 144.31 Est GFR (CKD-EPI)NonAf 124.51 Random Glucose 158 H Calcium 8.4 L Magnesium 1.9 Total Bilirubin 0.5 AST 4 L ALT 15 Alkaline Phosphatase 87 Total Protein 6.6 Albumin 3.0 L Urine Color Yellow Urine Appearance Clear Urine pH 6.5 Ur Specific [place] 1.009 L Urine Protein Negative Urine Glucose (UA) 3+ H Urine Ketones Negative Urine Blood Negative Urine Nitrite Negative Urine Bilirubin Negative Urine Urobilinogen 0.2 Ur Leukocyte Esterase Negative 08/04/19 09:42 RBC 4.14 MCV 88.6 MCHC 33.6 RDW 13.7 MPV 8.0 D Neutrophils % 73.5 Lymphocytes % 19.1 D Monocytes % 5.8 Eosinophils % 1.3 Basophils % 0.3 - RADIOLOGY Radiology Studies Ordered: Category Date Time Status LIMITED US [US] Stat Ultrasound 08/04/19 09:29 Completed - Medications Given in the ED: ED Medications Discontinued Medications Generic Name Dose Route Start Last Admin Trade Name Mary PRN Reason Stop Dose Admin Sodium Chloride 1,000 mls @ 1,000 mls/hr 08/04/19 09:29 08/04/19 09:47 Normal Saline - IV 08/04/19 10:28 1,000 mls/hr ASDIR STA Administration Medical Decision Making - Medical Decision Making 08/04/19 13:10 Patient is a 34-year-old female, 4 para 2, at 17 weeks gestation by ultrasound who presents with atraumatic bilateral abdominal pain for the past 24 to 36 hours, without associated nausea/vomiting/diarrhea/dysuria. In the ER , patient's awake and alert, obese, with minimal bilateral abdominal tenderness to deep palpation without guarding or rebound. Davey's is negative and there is no tenderness at McBurney's point. CBC is within normal limits without significant leukocytosis. CMP reveals mild hyperglycemia without evidence of increased anion gap. Urinalysis reveals glycosuria but no evidence of pyuria. Pelvic related ultrasound reveals an IUP with FHR at 17 weeks with adequate amount of amniotic fluid. I believe at this time the patient's symptoms are likely related to round ligament stretching in the not related to an acute intra-abdominal process. Patient is tolerating a meal in the ER. Will discharge with SCIENTOLOGIST follow-up as scheduled. Discharge - Discharge Information Problems reviewed: Yes Clinical Impression/Diagnosis: Hyperglycemia Abdominal pain Qualifiers: Abdominal location: generalized Qualified Code(s): R10.84 - Generalized abdominal pain Disposition: HOME - Admission No - Follow up/Referral Referrals: Kyra Fulton MD [Staff Physician] - - Patient Discharge Instructions Patient Printed Discharge Instructions: DI for Abdominal Pain -- Early Print Language: TAJIK - Post Discharge Activity
== END 2019-08-04 13:41 | disposition home or self-care (01) ==
LOC: JER 08:18
PROC: 3E0337Z Introduction of Electrolytic and Water Balance Substance into Peripheral Vein, Percutaneous Approach (ICD-10-PCS; principal; 2019-08-04)
DX: O26.892 Other specified pregnancy related conditions, second trimester (principal); Z3A.16 16 weeks gestation of pregnancy; R10.84 Generalized abdominal pain; R73.9 Hyperglycemia, unspecified
CPT/HCPCS: 36415; 76815-TC; 80053; 81003; 83735; 85025; 87086; 96360; 99284-25; J7030

== ENCOUNTER 2019-12-29 09:10 | Inpatient (IN) | payer OTHER ==
--- NOTE | 2019-12-29 09:43 | HP ---
Past Medical History - Primary Care Physician PCP:: Ry Kessler - Admission Chief Complaint: scheduled IOL History of Present Illness: Patient is a pre-gestational diabetic with sub-optimal glycemic control and LGA presenting for scheduled induction of labor. Patient has been extensively counseled as outpatient by primary OBGYN and is in agreement with plan of action. 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: No: Alzheimer's, CVA, Dementia, Migraine, Multiple Sclerosis, Peripheral Neuropathy, Parkinson's, Seizure, Syncope, TIA, Vertigo, Other Cardiovascular: No: AFIB, Aneurysm, Aortic Insufficiency, Aortic Stenosis, CAD, CHF, Deep Vein Thrombosis, HTN, Hyperlipdemia, RI, Mitral Insufficiency, Mitral Stenosis, Murmur, Pulmonary Hypertension, Other Pulmonary: No: Asthma, Bronchitis, Cancer, COPD, O2 Dependent, Pneumonia, Previously Intubated, Pulmonary Embolus, Pulmonary Fibrosis, Sleep Apnea, Other Gastrointestinal: No: Ascites, Cancer, Constipation, Crohn's Disease, Diverticulitis, Diverticulosis, Esophageal Varices, Gastritis, GERD, GI Bleed, Hemorrhoids, Hiatal Hernia, Inflamatory Bowel Disease, Irritable Bowel Disease, Pancreatitis, Peptic Ulcer Disease, Ulcerative Colitis, Other Hepatobiliary: No: Cirrhosis, Cholelithiasis, Cholecystitis, Choledocholithiasis , Hepatitis A, Hepatitis B, Hepatitis C, Other Renal/: No: Renal Failure, Renal Inusuff, BPH, Cancer, Hematuria, Hemodialysis , Neurogenic Bladder, Renal Calculi, UTI, Other Reproductive: No: Ectopic , Endometriosis, Fibroids, PID, Polycystic Ovary Syndrome, Postmenopausal, Other ...: 4 ...Para: 2 Heme/Onc: No: Anemia, B12 Deficiency, Bleeding Disorder, Cancer, Current Chemotherapy, Current Radiation Therapy, Hemochromatosis, Hypercoaguable State, Myeloproliferative Synd, Sickle Cell Disease, Sickle Cell Trait, Thrombocytopenia, Other Infectious Disease: No: AIDS, C-Diff, Herpes Zoster, HIV, MRSA, STD's, Tuberculosis, VREF, Other Psych: No: Addictions, Anxiety, Bipolar, Depression, Panic, Psychosis, Schizophrenia, Other Musculoskeletal: No: Bursitis, Chronic low back pain, Hemiparesis, Hemiplegia, Osteoarthritis, Paraplegia, Other Rheumatology: No: Fibromyalgia, Gout, Lupus, Rheumatoid Arthritis, Sarcoidosis, Vasculitis, Other ENT: No: Allergic Rhinitis, Sinusitis, Other Endocrine: No: Union's Disease, [place]'s Disease, Diabetes Insipidus, Diabetes Mellitus, Hyperparathyroidism, Hyperthyroidism, Hypothyroidism, Osteopenia, SIADH, Other Dermatology: No: Basal Cell, Cellulitis, Eczema, Melanoma, Psoriasis, Squamous Cell, Other - Past Surgical History Past Surgical History: No: None, AAA Repair, AICD, Amputation, Appendectomy, Arthrosocopy, AV Fistula/Graft, Bariatric Surgery, Breast Biopsy, Bypass, CABG, Carotid Endarterectomy, Cataract Removal, Cholecystectomy, Colectomy, Colonoscopy, Colostomy, Craniotomy, , Cystectomy, Hernia Repair, Hysterectomy, Ileal Conduit, Ileosotomy, Joint Replacement, Kidney Transplant, Laminectomy, Liver Transplant, Mastectomy, Nephrectomy, Oopherectomy, Orchiectomy, Permanent Pacemaker, Prostatectomy, Splenectomy, Stent, Thoracotomy , TURP, Tonsillectomy, Tubal Ligation, Upper Endoscopy, Valve Replacement, Vasectomy, Vein Stripping/Ligation Hx Myomectomy: No Hx Transabdominal Cerclage: No - Smoking History Smoking history: Never smoked Have you smoked in the past 12 months: No - Alcohol/Substance Use Hx Alcohol Use: No History of Substance Use: reports: None - Social History History of Recent Travel: No Home Medications - Allergies Allergies/Adverse Reactions: Allergies Allergy/AdvReac Type Severity Reaction Status Date / Time No Known Allergies Allergy Verified 12/17/19 13:44 - Home Medications Home Medications: Ambulatory Orders Insulin (Novolog) [Novolog -] 20 units SQ ACBK 12/17/19 Insulin (Novolog) [Novolog Vial] 16 units SQ ACDIN 12/17/19 Insulin (Novolog) [Novolog Vial] 18 units SQ ACLD 12/17/19 Insulin Detemir [Levemir Flextouch] 54 unit SQ AM 12/17/19 Insulin Detemir [Levemir Flextouch] 66 unit SQ HS 12/17/19 Pnv No.95/Ferrous Fum/Folic AC [ Vitamin Tablet] 1 each PO DAILY Family Medical History Family Hx Diabetes: Grandmother (maternal), Grandmother (paternal), Sister Review of Systems Findings/Remarks: Patient reports being anxious - Review of Systems Constitutional: reports: No Symptoms Eyes: reports: No Symptoms HENT: reports: No Symptoms Neck: reports: No Symptoms Cardiovascular: reports: No Symptoms Respiratory: reports: No Symptoms Gastrointestinal: reports: No Symptoms Genitourinary: reports: No Symptoms Breasts: reports: No Symptoms Reported Musculoskeletal: reports: No Symptoms Integumentary: reports: No Symptoms Neurological: reports: No Symptoms Endocrine: reports: No Symptoms Hematology/Lymphatic: reports: No Symptoms Psychiatric: reports: No Symptoms Physical Exam - Maternity Constitutional: Yes: Well Nourished Eyes: Yes: WNL HENT: Yes: Atraumatic Neck: Yes: Supple Cardiovascular: Yes: Regular Rate and Rhythm Breast(s): Yes: WNL - Abdominal Exam/OB Number of Fetuses: Single Presentation: Vertex Contractions: No Monitor Mode: External Heart Rate (range): 135 Category: I Accelerations: Uniform Decelerations: None - Vaginal Exam/OB Vaginal Bleediing: No Dilatation (cm): 2 Effacement (%): 40 Amniotic Membrane Status: Intact Presentation: Vertex/Position (sutures palpated. Cervical rendon placed with 70ml of sterile normal saline) Station: -3 - Physical Exam Musculoskeletal: Yes: WNL Extremities: Yes: WNL Edema: Yes Edema: LLE: Trace, RLE: Trace Integumentary: Yes: WNL Deep Tendon Reflex Grade: Normal +2 Psychiatric: Yes: Alert, Oriented Imaging - Results Ultrasound: Report Reviewed (All imaging reviewed; Sono on 12/23/19: 4100g (>97) , vertex) Problem List - Problems (1) Diabetes in Code(s): O24.919 - UNSP DIABETES MELLITUS IN , UNSPECIFIED TRIMESTER Assessment/Plan 34 y/o @ 37.3wks, poorly controlled pregestational diabetes, LGA, obese presenting for IOl. Patient was counseled at bedside regarding IOL, LGA, diabetes in , and SD including but not limited to their risks and complications. All questions answered and informed consent obtained. Cervical rendon in place -Continuous monitoring -FS q4h while not in active labor -Pitocin -Glycemic control as required -Pain control PRN
[2019-12-29] MEDS: ELECTROLYTE-148 SOLN 1,000 ML IV SCH ×2 (10:00→16:50)
[2019-12-29 10:08] LABS: BASO % 0.4 % (0-2.0); HEMOGLOBIN 12.1 GM/dL (10.7-15.3); MCH 28.7 pg (25.7-33.7); MCHC 33.7 g/dl (32.0-36.0); MEAN CELL VOLUME 85.3 fl (80-96); MEAN PLT VOLUME 9.7 fl (7.5-11.1); MONO % 4.9 % (3.8-10.2); NEUT % 72.7 % (42.8-82.8); PLATELET COUNT 203 K/MM3 (134-434); RBC 4.22 M/mm3 (3.60-5.2); RDW 14.2 % (11.6-15.6); WHITE BLOOD COUNT 10.1 K/mm3 (4.0-10.0)
[2019-12-29 10:26] LABS: INR 0.87 (0.83-1.09); PROTHROMBIN TIME (PATIENT) 10.3 SEC (9.7-13.0)
[2019-12-29 10:29] LABS: ACTIVATED PTT 31.1 SECONDS (25.2-36.5)
[2019-12-29] MEDS ORDERED: OXYTOCIN 30 UNITS in 0.9% NS 30 UNIT/500 ML INFUS.BAG IVPB SCH ×2 (10:30→11:30)
[2019-12-29 10:38] LABS: BLOOD UREA NITROGEN 14.5 mg/dL (7-18); CALCIUM 8.8 mg/dL (8.5-10.1); CREATININE 0.6 mg/dL (0.55-1.3); POTASSIUM 3.9 mmol/L (3.5-5.1)
[2019-12-29] MEDS ORDERED: OXYTOCIN 30 UNITS in 0.9% NS 30 UNIT/500 ML INFUS.BAG IVPB ONE (11:19)
[2019-12-29 11:44] VITALS: BMI 46.6
[2019-12-29] MEDS ORDERED: BUTORPHANOL TARTRATE 1 MG/ML VIAL ONE (12:26)
[2019-12-29] MEDS ORDERED: BUTORPHANOL TARTRATE 1 MG/ML VIAL IVPB ONE (12:29)
--- NOTE | 2019-12-29 12:36 | PN ---
Ante-Partal Exam - Subjective Subjective: Patient evaluated for pain. Requesting pain control Vital Signs: Vital Signs Temperature 98.1 F 12/29/19 09:10 Pulse Rate 65 12/29/19 09:10 Respiratory Rate 18 12/29/19 09:10 Blood Pressure 130/66 12/29/19 09:10 O2 Sat by Pulse Oximetry (%) Bleeding: No Headache: No Visual changes: No Right upper quadrant pain: No - Contractions Contractions: Yes Regularity: Irregular Intensity: Mod/Strong Monitor Mode: External - Exam during Labor Heart Rate: 135 Variability: Moderate Category: I Monitor Accelerations: Present Monitor Decelerations: None Exam: Vaginal (Traction applied to Cervical rendon and in place) Dilatation (cm): 4 Effacement (%): 60 Amniotic Membrane Status: Intact Presentation: Vertex Station: -3 - Assessment/Plan Assessment/Plan: 34 y/o @ 37.2wks, undergoing induction of labor due to poorly controlled pregestational diabetes, PP FS 137, FHT is reactive, cervical rendon in place, pitocin at 3mU/min, requesting pain control -IV stadol -Continue with current management -Consider bedside sono for confirmation of presentation following cervical rendon -Consider epidural in active labor -FS monitoring and sliding scale as required.
--- NOTE | 2019-12-29 15:14 | PN ---
Progress Note, Labor Vaginal Exam #1 Labor Exam Date: 12/29/19 Labor Exam Time: 15:13 Heart Rate (range): Cat I Dilatation: 4 Effacement (%): 20 Amniotic Membrane Status: Ruptured Presentation: Vertex/Position Station: -3 Remarks: Fajardo bulb in the vagina Now 4cm AROM, clears Epidural prn FS q3 hours, SSI Neto Fulton MD
--- NOTE | 2019-12-29 16:24 | PN ---
Progress Note, Labor Vaginal Exam #2 Labor Exam Date: 12/29/19 Labor Exam Time: 16:22 Heart Rate (range): Cat I Dilatation: 5 Effacement (%): 50 Amniotic Membrane Status: Ruptured Presentation: Vertex/Position Station: -3 Remarks: Getting more uncomfortable FSE and IUPC placed to ease with monitoring and pitocin titration Epidural now Anticipate Neto Fulton MD
[2019-12-29] MEDS ORDERED: LIDO 2%/EPI 1:200000 PRESRVFRE (20 ML SDVIAL) ONE (16:34)
[2019-12-29] MEDS ORDERED: BUPIVACAINE HCL/PF 0.25% (2.5MG/ML) 10 ML VIAL ONE ×2 (16:34→22:13)
[2019-12-29] MEDS ORDERED: FENTANYL/BUPIVACAINE/NS/PF - PCEA - 50 ML DISP.SYRIN EP ONE ×2 (16:34→21:44)
[2019-12-29] MEDS ORDERED: NALOXONE HCL 0.4 MG/ML VIAL IVPUSH PRN (17:01)
[2019-12-29] MEDS ORDERED: FENTANYL/BUPIVACAINE/NS/PF - PCEA - 50 ML DISP.SYRIN EP SCH (17:15)
--- NOTE | 2019-12-29 18:14 | PN ---
Progress Note, Labor Vaginal Exam #3 Labor Exam Date: 12/29/19 Labor Exam Time: 18:13 Heart Rate (range): Cat I Dilatation: 5 Effacement (%): 50 Amniotic Membrane Status: Ruptured Presentation: Vertex/Position Station: -3 Remarks: Comfortable after epidural Cervix unchanged Will increase pitocin Anticipate eventual Neto Fulton MD
[2019-12-29] MEDS ORDERED: OXYTOCIN 20 UNITS in 0.9% NS 0 UNIT/0 ML INFUS.BAG IV ONE (18:47)
--- NOTE | 2019-12-29 20:39 | PN ---
Progress Note, Labor Vaginal Exam #4 Labor Exam Date: 12/29/19 Labor Exam Time: 20:38 Heart Rate (range): Cat I Dilatation: 6 Effacement (%): 50 Amniotic Membrane Status: Ruptured Presentation: Vertex/Position Station: -3 Remarks: Comfortable still Slow progression Continue to increase pitocin to adequacy Anticipate eventual Neto Fulton MD
--- NOTE | 2019-12-29 21:59 | PN ---
Progress Note, Labor Vaginal Exam #5 Labor Exam Date: 12/29/19 Labor Exam Time: 21:58 Heart Rate (range): Cat I Dilatation: 7 Effacement (%): 100 Amniotic Membrane Status: Ruptured Presentation: Vertex/Position Station: 0 Remarks: Pt now very uncomfortable Reviewed epidural button for additional pain relief, if no improvement, will call Anesthesia Anticipate VERNON Fulton MD
--- NOTE | 2019-12-29 23:19 | PN ---
Progress Note, Labor Vaginal Exam #6 Labor Exam Date: 12/29/19 Labor Exam Time: 23:18 Heart Rate (range): Cat I Dilatation: 10 Effacement (%): 100 Amniotic Membrane Status: Ruptured Presentation: Vertex/Position Station: +1 Remarks: Will start pushing Anticipate NICU aware and to be present for delivery Neto Fulton MD
[2019-12-29] MEDS ORDERED: OXYTOCIN 20 UNITS in 0.9% NS 40 UNIT/2,000 ML INFUS.BAG IV ONE (23:28)
[2019-12-29] MEDS ORDERED: LIDOCAINE HCL 1% PRESERVATIVE FREE - 30ML VIAL ONE (23:28)
[2019-12-30] MEDS ORDERED: BENZOCAINE 28 GM HEMORRHOIDAL OINTMENT TP PRN (00:12)
[2019-12-30] MEDS ORDERED: WITCH HAZEL 50% (TUCKS) 40 PAD/JAR PAD TP PRN (00:12)
[2019-12-30] MEDS ORDERED: BISACODYL 10 MG SUPP.RECT RC PRN (00:12)
[2019-12-30] MEDS ORDERED: METHYLERGONOVINE MALEATE 0.2 MG/1 ML AMP IM PRN (00:12)
[2019-12-30] MEDS ORDERED: BENZOCAINE 20% 57 GM BOTTLE TP PRN (00:12)
[2019-12-30] MEDS ORDERED: OXYTOCIN 20 UNITS in 0.9% NS 20 UNIT/1,000 ML INFUS.BAG IV SCH (00:15)
--- NOTE | 2019-12-30 00:16 | LDN ---
Shoulder Dystocia Delivery Time Head Delivered: 23:49 Time Body Delivered: 23:53 - Initial Traction Gentle attempt at traction, assisted by maternal expulsive forces - Maneuvers utilized in order and by whom Maneuver 1: Russell Maneuver 2: Suprapubic Pressure Maneuver 3: Posterior Arm Release Maneuver 4: Episiotomy Extension Maneuver 5: Posterior Arm Release Maneuver 6: Wood's Maneuver Maneuver 7: Posterior Arm Release The arm under the symphysis at the point of the head was: Left Maneuvers: Aparicio's Maneuver - 30 degree oblique rotation of the anterior shoulder with the spine oriented anteriorly Wood's Maneuver - reduce anterior shoulder fro posterior aspect pushing in direction face is looking
--- NOTE | 2019-12-30 00:37 | PN ---
Delivery - Delivery Vaginal Delivery: Shoulder/Difficult Type of Anesthesia: Epidural Episiotomy/Laceration: Midline, 1st degree EBL (cc): 300 Delivery, Single - Stages of Labor Placenta: Yes: Spontaneous - Condition of Infant Customer Resolution Specialist/Transmitter Engineer Present: Yes Infant Gender: Female Position: Right, OA - 1 Minute Total Score: 7 5 Minutes Total Score: 9 - Feeding Plan Initial Plan: Exclusive throughout hospitalization Remarks - Remarks Remarks: Patient completely dilated with rectal pressure. Pushed effectively to deliver the head spontaneously in ADOLFO position. No nuchal. No meconium. No spontaneous delivery of the anterior shoulder, shoulder dystocia identified. NICU present at delivery given high risk with DM2, EFW 4055g and potential for shoulder dystocia- although pelvis tested to 9.2lbs previously. Mother instructed to stop pushing and McRobert's applied, suprapubic pressure applied. Mother instructed to push with still no delivery of the anterior shoulder. Mother instructed to stop pushing. Delivery attempted of the posterior shoulder, however, insufficient space posteriorly to adequately isolate the arm. Midline episiotomy performed with subsequent attempt to release the posterior shoulder, however, unsuccessful. Patient advised to stop pushing while Wood's maneuver attempted, however, no release of the anterior shoulder. An additional attempt was made to release the posterior shoulder, which was identified and delivered with then immediate release of the anterior shoulder allowing delivery. Infant placed on maternal abdomen, cord clamped and cut promptly. Infant handed over to NICU staff. Cord gasses collected. Weight 9.3lbs, Apgars 7/9. Spontaneous delivery of intact placenta with 3VC. Fundus firm. Perineum inspected, midline episiotomy repaired with 3-0 vicryl with good cosmesis and hemostasis. No further bleeding noted. EBL 300ml. Mother doing well. NICU advised that right arm, which was posterior likely affected given difficulties during delivery. Shoulder dystocia and sequelae discussed with patient and her partner, whom asked questions freely and were then answered candidly. Kyra Fulton MD
[2019-12-30] MEDS ORDERED: ACETAMINOPHEN 325 MG TABLET (FP) ONE (02:53)
[2019-12-30] MEDS ORDERED: IBUPROFEN 600 MG TABLET (FP) PO ONE (02:53)
[2019-12-30] MEDS: IBUPROFEN 600 MG TABLET (FP) PO PRN ×2 (02:55→10:45)
[2019-12-30] MEDS: ACETAMINOPHEN 325 MG TABLET (FP) PO PRN ×2 (02:55→10:45)
[2019-12-30] MEDS ORDERED: OXYTOCIN 20 UNITS in 0.9% NS 20 UNIT/1,000 ML INFUS.BAG IV ONE (04:53)
--- NOTE | 2019-12-30 07:56 | PN ---
Post Progress Note - Subjective Subjective: Pain controlled. Lochia < menses. Plans to breastfeed, however, transferred to [facility] given Fx after shoulder dystocia. No fevers/chills. Minimal ambulation Type of Delivery: Vital Signs: Vital Signs Temperature 98.4 F 12/30/19 06:00 Pulse Rate 76 12/30/19 06:00 Respiratory Rate 20 12/30/19 06:00 Blood Pressure 109/66 12/30/19 06:00 O2 Sat by Pulse Oximetry (%) 100 12/29/19 23:30 Uterus: Yes: Fundus below umbilicus Abdomen/GI: Yes: Abdomen soft, Tolerating PO Lochia: Yes: Rubra Lochia, amount: Small Perineum: Yes: Episiotomy Activity: Ambulating - Labs Labs: CBC WBC 10.1 K/mm3 (4.0-10.0) H 12/29/19 09:35 RBC 4.22 M/mm3 (3.60-5.2) 12/29/19 09:35 Hgb 12.1 GM/dL (10.7-15.3) 12/29/19 09:35 Hct 36.0 % (32.4-45.2) 12/29/19 09:35 MCV 85.3 fl (80-96) 12/29/19 09:35 MCH 28.7 pg (25.7-33.7) 12/29/19 09:35 MCHC 33.7 g/dl (32.0-36.0) 12/29/19 09:35 RDW 14.2 % (11.6-15.6) 12/29/19 09:35 Plt Count 203 K/MM3 (134-434) D 12/29/19 09:35 MPV 9.7 fl (7.5-11.1) D 12/29/19 09:35 Absolute Neuts (auto) 7.3 K/mm3 (1.5-8.0) 12/29/19 09:35 Neutrophils % 72.7 % (42.8-82.8) 12/29/19 09:35 Lymphocytes % 21.0 % (8-40) 12/29/19 09:35 Monocytes % 4.9 % (3.8-10.2) 12/29/19 09:35 Eosinophils % 1.0 % (0-4.5) 12/29/19 09:35 Basophils % 0.4 % (0-2.0) 12/29/19 09:35 Nucleated RBC % 0 % (0-0) 12/29/19 09:35 Assessment/Plan 34yo s/p , PPD#1 Routine PP care PO pain control Breast pump FS AC TID. Endo consult today for home medication recommendations, possibility she may not need insulin but will defer to Endo Case again discussed with patient regarding delivery and complications. at [facility] for care. Anxious to see daughter. Discussed possibility of D/C to home later today if stable given she wants to see her daughter. All questions answered Advised to follow up in one week for PP check Neto Fulton MD
[2019-12-30] MEDS: PRENATAL VITAMINS W/ FOLIC ACID TABLET (FP) PO SCH (11:00)
[2019-12-30] MEDS: INSULIN (NOVOLOG) ASPART 100 UNITS/ML 10ML VIAL SQ SCH ×2 (17:31→17:32)
[2019-12-30] MEDS ORDERED: INSULIN (LEVEMIR) 100 UNITS/ML UNITS SQ SCH (22:00)
[2019-12-30] MEDS: INSULIN SLIDING SCALE (NOVOLOG) 1 VIAL SQ SCH (23:10)
--- NOTE | 2019-12-30 23:17 | CONSULT ---
Consult Consult Specialty:: Endocrine Referred by:: Kyra Fulton MD Reason for Consultation:: Diabetes mellitus type 2 - History of Present Illness Chief Complaint: post diabetic History of Present Illness: 34 y female,pmh dm type 2,post delivery,has had dm with insulin requirement increasing during ,states she needs usually twice a day levemir 26units at home with humalog coverage she denies,nausea vomiting or hypoglycemia. 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: No: Alzheimer's, CVA, Dementia, Migraine, Multiple Sclerosis, Peripheral Neuropathy, Parkinson's, Seizure, Syncope, TIA, Vertigo, Other Cardio/Vascular: No: AFIB, Aneurysm, Aortic Insufficiency, Aortic Stenosis, CAD , CHF, Deep Vein Thrombosis, HTN, Hyperlipdemia, CA, Mitral Insufficiency, Mitral Stenosis, Murmur, Pulmonary Hypertension, Other Pulmonary: No: Asthma, Bronchitis, Cancer, COPD, O2 Dependent, Pneumonia, Previously Intubated, Pulmonary Embolus, Pulmonary Fibrosis, Sleep Apnea, Other Gastrointestinal: No: Ascites, Cancer, Constipation, Crohn's Disease, Diverticulitis, Diverticulosis, Esophageal Varices, Gastritis, GERD, GI Bleed, Hemorrhoids, Hiatal Hernia, Inflamatory Bowel Disease, Irritable Bowel Disease, Pancreatitis, Peptic Ulcer Disease, Ulcerative Colitis, Other Hepatobiliary: No: Cirrhosis, Cholelithiasis, Cholecystitis, Choledocholithiasis , Hepatitis A, Hepatitis B, Hepatitis C, Other Renal/: No: Renal Failure, Renal Inusuff, BPH, Cancer, Hematuria, Hemodialysis , Neurogenic Bladder, Renal Calculi, UTI, Other ...LMP: 03/30/19 Infectious Disease: No: AIDS, C-Diff, Herpes Zoster, HIV, MRSA, STD's, Tuberculosis, VREF, Other Psych: No: Addictions, Anxiety, Bipolar, Depression, Panic, Psychosis, Schizophrenia, Other Musculoskeletal: No: Bursitis, Chronic low back pain, Hemiparesis, Hemiplegia, Osteoarthritis, Paraplegia, Other Rheumatology: No: Fibromyalgia, Gout, Lupus, Rheumatoid Arthritis, Sarcoidosis, Vasculitis, Other ENT: No: Allergic Rhinitis, Sinusitis, Other Endocrine: No: Ford's Disease, Zafar's Disease, Diabetes Insipidus, Diabetes Mellitus, Hyperparathyroidism, Hyperthyroidism, Hypothyroidism, Osteopenia, SIADH, Other Dermatology: No: Basal Cell, Cellulitis, Eczema, Melanoma, Psoriasis, Squamous Cell, Other - Past Surgical History Past Surgical History: No: None, AAA Repair, AICD, Amputation, Appendectomy, Arthrosocopy, AV Fistula/Graft, Bariatric Surgery, Breast Biopsy, Bypass, CABG, Carotid Endarterectomy, Cataract Removal, Cholecystectomy, Colectomy, Colonoscopy, Colostomy, Craniotomy, , Cystectomy, Hernia Repair, Hysterectomy, Ileal Conduit, Ileosotomy, Joint Replacement, Kidney Transplant, Laminectomy, Liver Transplant, Mastectomy, Nephrectomy, Oopherectomy, Orchiectomy, Permanent Pacemaker, Prostatectomy, Splenectomy, Stent, Thoracotomy , TURP, Tonsillectomy, Tubal Ligation, Upper Endoscopy, Valve Replacement, Vasectomy, Vein Stripping/Ligation - Alcohol/Substance Use Hx Alcohol Use: No History of Substance Use: reports: None - Smoking History Smoking history: Never smoked Have you smoked in the past 12 months: No - Social History History of Recent Travel: No Home Medications - Allergies Allergies/Adverse Reactions: Allergies Allergy/AdvReac Type Severity Reaction Status Date / Time No Known Allergies Allergy Verified 12/30/19 08:27 - Home Medications Home Medications: Ambulatory Orders Insulin (Novolog) [Novolog -] 20 units SQ ACBK 12/17/19 Insulin (Novolog) [Novolog Vial] 16 units SQ ACDIN 12/17/19 Insulin (Novolog) [Novolog Vial] 18 units SQ ACLD 12/17/19 Insulin Detemir [Levemir Flextouch] 54 unit SQ AM 12/17/19 Insulin Detemir [Levemir Flextouch] 66 unit SQ HS 12/17/19 Pnv No.95/Ferrous Fum/Folic AC [ Vitamin Tablet] 1 each PO DAILY Breast Pump 1 each MC TID #1 each 12/30/19 Ibuprofen 600 mg PO Q6H PRN #30 tablet 12/30/19 Review of Systems - Review of Systems Constitutional: reports: No Symptoms Eyes: reports: No Symptoms HENT: reports: No Symptoms Neck: reports: No Symptoms Cardiovascular: reports: No Symptoms Respiratory: reports: No Symptoms Gastrointestinal: reports: No Symptoms Genitourinary: reports: No Symptoms Musculoskeletal: reports: No Symptoms Endocrine: reports: Increased Thirst Physical Exam Vital Signs: Vital Signs Temperature 98.4 F 12/30/19 22:38 Pulse Rate 80 12/30/19 22:38 Respiratory Rate 12/30/19 22:38 Blood Pressure 125/72 12/30/19 22:38 O2 Sat by Pulse Oximetry (%) 100 12/30/19 08:00 Constitutional: Yes: Calm Eyes: Yes: EOM Intact HENT: Yes: Normocephalic Neck: Yes: Trachea Midline Cardiovascular: Yes: Regular Rate and Rhythm Respiratory: Yes: CTA Bilaterally Gastrointestinal: Yes: Normal Bowel Sounds ...Rectal Exam: Yes: Deferred Renal/: Yes: WNL Musculoskeletal: Yes: WNL Extremities: Yes: WNL Edema: No Neurological: Yes: Alert, Oriented Labs: CBC, BMP 12/29/19 09:35 12/29/19 09:35 Problem List - Problems (1) Diabetes mellitus Problems reviewed: Yes Code(s): E11.9 - TYPE 2 DIABETES MELLITUS WITHOUT COMPLICATIONS (2) Hyperglycemia Code(s): R73.9 - HYPERGLYCEMIA, UNSPECIFIED (3) Weakness Code(s): R53.1 - WEAKNESS Assessment/Plan Current Active Problems Diabetes in (Acute) Abnormal Lab Results Laboratory Results - last 24 hr Laboratory Tests 12/29/19 12/29/19 12/29/19 09:35 10:26 13:39 Sodium 139 Potassium 3.9 Chloride 110 H Carbon Dioxide 21 Anion Gap 8 BUN 14.5 Creatinine 0.6 Est GFR (CKD-EPI)AfAm 135.91 POC Glucometer 137 117 12/29/19 12/29/19 12/29/19 16:52 19:37 22:36 Sodium Potassium Chloride Carbon Dioxide Anion Gap BUN Creatinine Est GFR (CKD-EPI)AfAm POC Glucometer 98 98 104 plan: bgm qid novolog scale diet nutrition consult \follow as outpatient for control blood sugars
[2019-12-31] MEDS: ACETAMINOPHEN 325 MG TABLET (FP) PO PRN (04:18)
[2019-12-31] MEDS: IBUPROFEN 600 MG TABLET (FP) PO PRN (04:18)
--- NOTE | 2019-12-31 06:58 | PN ---
Progress Note (short form) - Note Progress Note: ppd1 s/p , no c/o, no excess vaginal bleeding CBC, BMP 12/29/19 09:35 12/29/19 09:35 Last Vital Signs Temp Pulse Resp BP Pulse Ox 98.4 F 80 20 125/72 100 12/30/19 22:38 12/30/19 22:38 12/30/19 22:38 12/30/19 22:38 12/30/19 08:00 abdomen soft, no distension, no cva uterus firm, non tender lochia mild no calf tenderness plan cont BGM ambulate cbc today
[2019-12-31] MEDS ORDERED: INSULIN (LEVEMIR) 100 UNITS/ML UNITS SQ SCH (07:00)
[2019-12-31] MEDS: INSULIN SLIDING SCALE (NOVOLOG) 1 VIAL SQ SCH ×2 (07:43→11:57)
[2019-12-31 08:07] LABS: BASO % 0.4 % (0-2.0); EOS % 0.9 % (0-4.5); HEMATOCRIT 31.6 % (32.4-45.2); HEMOGLOBIN 10.6 GM/dL (10.7-15.3); LYMPH % 15.9 % (8-40); MCH 28.4 pg (25.7-33.7); MCHC 33.4 g/dl (32.0-36.0); MEAN PLT VOLUME 9.5 fl (7.5-11.1); MONO % 4.8 % (3.8-10.2); PLATELET COUNT 191 K/MM3 (134-434); RBC 3.72 M/mm3 (3.60-5.2); RDW 14.6 % (11.6-15.6); WHITE BLOOD COUNT 9.9 K/mm3 (4.0-10.0)
[2019-12-31] MEDS: PRENATAL VITAMINS W/ FOLIC ACID TABLET (FP) PO SCH (09:42)
[2019-12-31] MEDS ORDERED: DIPHTH,PERTUSS(ACELL),TET 0.5 ML DISP.SYRIN IM ONE (10:00)
[2019-12-31 14:40] VITALS: BP 110/62; PULSE 72; TEMP 97.8
[2019-12-31] MEDS ORDERED: SENNOSIDES/DOCUSATE COMBO (SENNA PLUS) TABLET (UD) PO PRN (22:00)
--- NOTE | 2020-01-13 13:07 | DS ---
Physical Examination Vital Signs: Vital Signs Temperature 97.8 F 12/31/19 10:00 Pulse Rate 72 12/31/19 10:00 Respiratory Rate 18 12/31/19 10:00 Blood Pressure 110/62 12/31/19 10:00 O2 Sat by Pulse Oximetry (%) 100 12/30/19 08:00 Constitutional: Yes: Well Nourished, No Distress, Calm Eyes: Yes: WNL, Conjunctiva Clear, EOM Intact HENT: Yes: WNL, Atraumatic, Normocephalic Neck: Yes: WNL, Supple, Trachea Midline Cardiovascular: Yes: WNL, Regular Rate and Rhythm Respiratory: Yes: WNL, Regular, CTA Bilaterally Gastrointestinal: Yes: WNL, Normal Bowel Sounds Musculoskeletal: Yes: WNL Extremities: Yes: WNL Edema: No Integumentary: Yes: WNL Neurological: Yes: WNL, Alert, Oriented ...Motor Strength: WNL Psychiatric: Yes: WNL Labs: CBC, BMP 12/31/19 06:50 12/29/19 09:35 Discharge Summary Problems reviewed: Yes Reason For Visit: INDUCTION OF LABOR Procedures: Principal: Hospital Course: Patient presented at 37 weeks for an induction of labor secondary to Type II D iabetes She had normal progression of labor Her delivery was complicated by a shoulder dystocia She met all milestones She was seen by Endocrinology for glycemic control She was discharged home in stable condition Neto Fulton MD Condition: Stable - Instructions Diet, Activity, Other Instructions: Diabetic Diet Follow up in on week for a check up with Dr. Fulton- January [address] [place] [address] Referrals: Kyra Fulton MD [Staff Physician] - Disposition: HOME - Home Medications Comprehensive Discharge Medication List: Ambulatory Orders Insulin (Novolog) [Novolog -] 20 units SQ ACBK 12/17/19 Insulin (Novolog) [Novolog Vial] 16 units SQ ACDIN 12/17/19 Insulin (Novolog) [Novolog Vial] 18 units SQ ACLD 12/17/19 Insulin Detemir [Levemir Flextouch] 54 unit SQ AM 12/17/19 Insulin Detemir [Levemir Flextouch] 66 unit SQ HS 12/17/19 Pnv No.95/Ferrous Fum/Folic AC [ Vitamin Tablet] 1 each PO DAILY 12/17/19 Breast Pump 1 each MC TID #1 each 12/30/19 Ibuprofen 600 mg PO Q6H PRN #30 tablet 12/30/19
== END 2019-12-31 13:20 | disposition home or self-care (01) | DRG 560 ==
LOC: JLDR 09:10 → J3W 12-30 14:00
PROVIDERS: ADMIT Obstetrics & Gynecology; ATTEND Obstetrics & Gynecology
PROC: 10E0XZZ Delivery of Products of Conception, External Approach (ICD-10-PCS; principal; 2019-12-30)
PROC: 0HQ9XZZ Repair Perineum Skin, External Approach (ICD-10-PCS; 2019-12-30)
PROC: 0W8NXZZ Division of Female Perineum, External Approach (ICD-10-PCS; 2019-12-30)
DX: O70.0 First degree perineal laceration during delivery (principal); O36.63X0 Maternal care for excessive fetal growth, third trimester, not applicable or unspecified; O99.214 Obesity complicating childbirth; O24.429 Gestational diabetes mellitus in childbirth, unspecified control; Z3A.37 37 weeks gestation of pregnancy; Z37.0 Single live birth
CPT/HCPCS: 36415; 36600; 59409; 80048; 82803; 82962; 83036; 85025; 85610; 85730; 86593; 86850; 86900; 86901; 90715

== ENCOUNTER 2021-11-05 12:35 | Emergency (ER) | payer OTHER ==
[2021-11-05 12:41] VITALS: BP 110/73; PULSE 79; TEMP 97.9; BMI 36.2
[2021-11-05] MEDS ORDERED: ACETAMINOPHEN 325 MG TABLET (FP) PO ONE (14:17)
[2021-11-05] MEDS ORDERED: ACETAMINOPHEN 325 MG TABLET (FP) ONE (14:27)
[2021-11-05 15:57] LABS: PH,URINE 5.5 (5.0-8.0); URINE APPEARANCE CLEAR; URINE BILIRUBIN NEGATIVE (NEGATIVE); URINE COLOR YELLOW; URINE GLUCOSE (UA) 3+ (NEGATIVE); URINE KETONE NEGATIVE (NEGATIVE); URINE LEUK ESTERASE NEGATIVE (NEGATIVE); URINE NITRITE NEGATIVE (NEGATIVE); URINE PROTEIN NEGATIVE (NEGATIVE); URINE UROBILINOGEN 0.2 mg/dL (0.2-1.0)
[2021-11-05 20:34] LABS: BASO % 0.4 % (0-2.0); EOS % 0.7 % (0-4.5); HEMATOCRIT 43.1 % (32.4-45.2); HEMOGLOBIN 14.3 GM/dL (10.7-15.3); LYMPH % 33.2 % (8-40); MCH 29.3 pg (25.7-33.7); MCHC 33.1 g/dl (32.0-36.0); MEAN CELL VOLUME 88.5 fl (80-96); MEAN PLT VOLUME 8.7 fl (7.5-11.1); MONO % 11.1 % (3.8-10.2); NEUT % 54.6 % (42.8-82.8); PLATELET COUNT 245 10^3/uL (134-434); RBC 4.87 M/mm3 (3.60-5.2); RDW 13.8 % (11.6-15.6); WHITE BLOOD COUNT 4.4 K/mm3 (4.0-10.0)
[2021-11-05 21:09] LABS: ALBUMIN 3.7 g/dl (3.4-5.0); CALCIUM 8.5 mg/dL (8.5-10.1)
[2021-11-05 21:12] LABS: CREATININE 0.4 mg/dL (0.55-1.3)
[2021-11-05 21:14] LABS: BILIRUBIN,TOTAL 0.8 mg/dL (0.2-1)
== END 2021-11-05 21:49 | disposition home or self-care (01) ==
LOC: JER 12:35
DX: R10.9 Unspecified abdominal pain (principal)
CPT/HCPCS: 36415; 76830-TC; 80053; 81003; 84702; 85025; 99284-25

== ENCOUNTER 2022-09-14 12:01 | Emergency (ER) | payer OTHER ==
[2022-09-14 12:06] VITALS: BMI 36.9
[2022-09-14 15:30] LABS: HEMATOCRIT 40.8 % (32.4-45.2); HEMOGLOBIN 13.7 GM/dL (10.7-15.3); MCH 29.8 pg (25.7-33.7); MCHC 33.5 g/dl (32.0-36.0); MEAN CELL VOLUME 88.8 fl (80-96); MEAN PLT VOLUME 8.2 fl (7.5-11.1); PLATELET COUNT 263 10^3/uL (134-434); RDW 13.8 % (11.6-15.6); WHITE BLOOD COUNT 7.3 K/mm3 (4.0-10.0)
[2022-09-14 15:37] LABS: URINE APPEARANCE CLEAR; URINE BILIRUBIN NEGATIVE (NEGATIVE); URINE COLOR YELLOW; URINE GLUCOSE (UA) 1+ (NEGATIVE); URINE KETONE NEGATIVE (NEGATIVE); URINE LEUK ESTERASE NEGATIVE (NEGATIVE); URINE NITRITE NEGATIVE (NEGATIVE); URINE PROTEIN NEGATIVE (NEGATIVE); URINE UROBILINOGEN 0.2 mg/dL (0.2-1.0)
[2022-09-14 15:57] LABS: ALBUMIN 3.4 g/dl (3.4-5.0); BLOOD UREA NITROGEN 10.4 mg/dL (7-18); CALCIUM 8.2 mg/dL (8.5-10.1)
[2022-09-14 16:00] LABS: CREATININE 0.4 mg/dL (0.55-1.3)
[2022-09-14 16:02] LABS: BILIRUBIN,TOTAL 0.7 mg/dL (0.2-1); TOT PROT 6.9 g/dl (6.4-8.2)
[2022-09-14 16:22] VITALS: BP 127/78; PULSE 70; RESP 15; TEMP 98.3
[2022-09-14] MEDS ORDERED: ACETAMINOPHEN 500 MG TABLET (FP) PO ONE (16:47)
[2022-09-14] MEDS ORDERED: ACETAMINOPHEN 325 MG TABLET (FP) ONE (17:17)
== END 2022-09-14 20:10 | disposition home or self-care (01) ==
LOC: JER 12:01
DX: O26.891 Other specified pregnancy related conditions, first trimester (principal); R10.31 Right lower quadrant pain; Z3A.01 Less than 8 weeks gestation of pregnancy
CPT/HCPCS: 36415; 76817-TC; 80053; 81003; 84702; 85027; 86850; 86900; 86901; 87070; 87077; 87086; 87205; 87491; 87591; 99284-25

== ENCOUNTER 2022-10-18 19:22 | Emergency (ER) | payer OTHER ==
[2022-10-18 19:36] VITALS: BP 123/76; PULSE 76; RESP 18; TEMP 97; BMI 37.2
[2022-10-18] MEDS ORDERED: SODIUM CHLORIDE 0.9% 1000 ML INFUS.BAG IV ONE (20:13)
[2022-10-18 20:33] LABS: INR 1.02 (0.83-1.09); PROTHROMBIN TIME (PATIENT) 11.7 SEC (9.7-13.0)
[2022-10-18 20:35] LABS: BASO % 0.5 % (0-2.0); EOS % 2.3 % (0-4.5); HEMATOCRIT 41.2 % (32.4-45.2); HEMOGLOBIN 13.5 GM/dL (10.7-15.3); LYMPH % 25.5 % (8-40); MCH 29.3 pg (25.7-33.7); MCHC 32.6 g/dl (32.0-36.0); MEAN CELL VOLUME 89.7 fl (80-96); MEAN PLT VOLUME 8.7 fl (7.5-11.1); NEUT % 66.7 % (42.8-82.8); PLATELET COUNT 269 10^3/uL (134-434); RDW 13.1 % (11.6-15.6); WHITE BLOOD COUNT 7.6 K/mm3 (4.0-10.0)
[2022-10-18 20:36] LABS: ACTIVATED PTT 28.8 SECONDS (25.2-36.5)
[2022-10-18 20:46] LABS: ALBUMIN 3.3 g/dl (3.4-5.0); CALCIUM 8.5 mg/dL (8.5-10.1)
[2022-10-18 20:49] LABS: CREATININE 0.6 mg/dL (0.55-1.3)
[2022-10-18 20:51] LABS: BILIRUBIN,TOTAL 0.8 mg/dL (0.2-1); TOT PROT 6.5 g/dl (6.4-8.2)
[2022-10-18 22:15] LABS: VENOUS BASE EXCESS -3.2 mmol/L (-2-2); VENOUS O2 SATURATION 73.5 % (70-80); VENOUS PCO2 39.8 mmHg (38-52); VENOUS PH 7.359 (7.310-7.410)
[2022-10-18] MEDS ORDERED: SODIUM CHLORIDE 0.9% 500 ML INFUS.BAG IV ONE (22:17)
[2022-10-19 03:28] LABS: EPI CELLS 24 /uL (0-25.1); HYALINE CASTS 1 /uL (0-3.1); PH,URINE 5.5 (5.0-8.0); URINE APPEARANCE CLOUDY; URINE BILIRUBIN NEGATIVE (NEGATIVE); URINE COLOR ORANGE; URINE GLUCOSE (UA) 3+ (NEGATIVE); URINE KETONE 2+ (NEGATIVE); URINE LEUK ESTERASE NEGATIVE (NEGATIVE); URINE NITRITE NEGATIVE (NEGATIVE); URINE PROTEIN NEGATIVE (NEGATIVE); URINE RBC 1704 /uL (0-23.9); URINE UROBILINOGEN 0.2 mg/dL (0.2-1.0); URINE WBC 23 /uL (0-25.8)
[2022-10-19 07:52] LABS: URINE BACTERIA 27.6 /uL (0-1359)
== END 2022-10-19 02:00 | disposition home or self-care (01) ==
LOC: JER 19:22
DX: O03.9 Complete or unspecified spontaneous abortion without complication (principal); R73.9 Hyperglycemia, unspecified
CPT/HCPCS: 36415; 76801-TC; 80053; 81003; 82010; 82803; 82962; 84702; 85025; 85610; 85730; 86850; 86900; 86901; 87086; 99284-25

== ENCOUNTER 2023-02-16 23:57 | Emergency (ER) | payer OTHER ==
[2023-02-17 00:02] VITALS: BP 116/78; PULSE 79; RESP 18; TEMP 98.7; BMI 35.4
[2023-02-17 01:18] LABS: PH,URINE 5.5 (5.0-8.0); URINE APPEARANCE CLEAR; URINE BILIRUBIN NEGATIVE (NEGATIVE); URINE COLOR YELLOW; URINE GLUCOSE (UA) 2+ (NEGATIVE); URINE KETONE 1+ (NEGATIVE); URINE LEUK ESTERASE NEGATIVE (NEGATIVE); URINE NITRITE NEGATIVE (NEGATIVE); URINE PROTEIN NEGATIVE (NEGATIVE)
[2023-02-17 02:25] LABS: BASO % 0.2 % (0-2.0); EOS % 2.2 % (0-4.5); HEMOGLOBIN 13.2 GM/dL (10.7-15.3); MCH 28.3 pg (25.7-33.7); MCHC 33.7 g/dl (32.0-36.0); MEAN CELL VOLUME 83.9 fl (80-96); MEAN PLT VOLUME 8.2 fl (7.5-11.1); MONO % 6.8 % (3.8-10.2); NEUT % 62.8 % (42.8-82.8); PLATELET COUNT 245 10^3/uL (134-434); RBC 4.65 M/mm3 (3.60-5.2); RDW 15.5 % (11.6-15.6); WHITE BLOOD COUNT 8.4 K/mm3 (4.0-10.0)
[2023-02-17 03:06] LABS: ALBUMIN 3.4 g/dl (3.4-5.0); CALCIUM 8.7 mg/dL (8.5-10.1)
[2023-02-17] MEDS ORDERED: LACTATED RINGERS SOLUTION 1000 ML INFUS.BAG IV ONE (03:06)
[2023-02-17] MEDS ORDERED: metroNIDAZOLE 500 MG TABLET PO ONE (03:06)
[2023-02-17 03:07] LABS: BLOOD UREA NITROGEN 16.6 mg/dL (7-18)
[2023-02-17 03:09] LABS: CREATININE 0.4 mg/dL (0.55-1.3)
[2023-02-17 03:11] LABS: BILIRUBIN,TOTAL 0.8 mg/dL (0.2-1); TOT PROT 6.9 g/dl (6.4-8.2)
[2023-02-17] MEDS ORDERED: metroNIDAZOLE 250 MG TABLET ONE (03:14)
== END 2023-02-17 06:15 | disposition home or self-care (01) ==
LOC: JER 23:57
DX: N89.8 Other specified noninflammatory disorders of vagina (principal); R10.30 Lower abdominal pain, unspecified
CPT/HCPCS: 36415; 76817-TC; 80053; 81003; 84702; 85025; 86850; 86900; 86901; 87086; 99284-25

== ENCOUNTER 2023-03-01 21:45 | Emergency (ER) | payer OTHER ==
[2023-03-01 22:02] VITALS: BP 119/59; PULSE 77; RESP 20; TEMP 97.3; BMI 38.0
[2023-03-01] MEDS ORDERED: ACETAMINOPHEN 1000 MG/100 ML BAG IVPB ONE (23:02)
[2023-03-01] MEDS ORDERED: ACETAMINOPHEN INJECTION 100 ML IVPB ONE (23:03)
[2023-03-01] MEDS ORDERED: ONDANSETRON 4 MG/2 ML VIAL IVPUSH ONE (23:06)
[2023-03-01 23:17] LABS: BASO % 0.9 % (0-2.0); EOS % 2.2 % (0-4.5); HEMATOCRIT 38.9 % (32.4-45.2); HEMOGLOBIN 13.1 GM/dL (10.7-15.3); LYMPH % 28.6 % (8-40); MCH 28.7 pg (25.7-33.7); MCHC 33.7 g/dl (32.0-36.0); MEAN CELL VOLUME 85.1 fl (80-96); MONO % 6.8 % (3.8-10.2); NEUT % 61.5 % (42.8-82.8); PLATELET COUNT 278 10^3/uL (134-434); RBC 4.57 M/mm3 (3.60-5.2); RDW 15.8 % (11.6-15.6); WHITE BLOOD COUNT 8.7 K/mm3 (4.0-10.0)
[2023-03-01 23:38] LABS: ALBUMIN 3.3 g/dl (3.4-5.0); BLOOD UREA NITROGEN 18.2 mg/dL (7-18)
[2023-03-01 23:41] LABS: CREATININE 0.4 mg/dL (0.55-1.3)
[2023-03-01 23:43] LABS: BILIRUBIN,TOTAL 0.8 mg/dL (0.2-1); TOT PROT 6.7 g/dl (6.4-8.2)
[2023-03-01] MEDS ORDERED: ONDANSETRON 4 MG/2 ML VIAL ONE (23:53)
== END 2023-03-02 02:19 | disposition home or self-care (01) ==
LOC: JER 21:45
PROC: 3E033NZ Introduction of Analgesics, Hypnotics, Sedatives into Peripheral Vein, Percutaneous Approach (ICD-10-PCS; principal; 2023-03-01)
PROC: 3E033GC Introduction of Other Therapeutic Substance into Peripheral Vein, Percutaneous Approach (ICD-10-PCS; 2023-03-01)
DX: O03.9 Complete or unspecified spontaneous abortion without complication (principal)
CPT/HCPCS: 36415; 76705-TC; 76817-TC; 80053; 84702; 85025; 86850; 86900; 86901; 99284-25

== ENCOUNTER 2023-09-16 00:36 | Emergency (ER) | payer OTHER ==
[2023-09-16 00:45] VITALS: BP 115/68; PULSE 95; RESP 16; TEMP 98.6; BMI 37.2
[2023-09-16] MEDS ORDERED: ACETAMINOPHEN 1000 MG/100 ML BAG IVPB ONE (01:09)
[2023-09-16] MEDS ORDERED: ACETAMINOPHEN 325 MG TABLET (FP) PO ONE (01:15)
[2023-09-16] MEDS ORDERED: ACETAMINOPHEN 325 MG TABLET (FP) ONE (01:17)
[2023-09-16 02:33] LABS: BASO % 0.4 % (0-2.0); EOS % 2.9 % (0-4.5); HEMATOCRIT 41.3 % (32.4-45.2); HEMOGLOBIN 14.2 GM/dL (10.7-15.3); LYMPH % 18.3 % (8-40); MCH 29.8 pg (25.7-33.7); MCHC 34.3 g/dl (32.0-36.0); MEAN CELL VOLUME 86.8 fl (80-96); MEAN PLT VOLUME 8.4 fl (7.5-11.1); MONO % 6.1 % (3.8-10.2); NEUT % 72.3 % (42.8-82.8); PLATELET COUNT 252 10^3/uL (134-434); RBC 4.76 M/mm3 (3.60-5.2); RDW 13.9 % (11.6-15.6); WHITE BLOOD COUNT 7.1 K/mm3 (4.0-10.0)
[2023-09-16 02:57] LABS: POTASSIUM 4.1 mmol/L (3.5-5.1)
[2023-09-16 03:01] LABS: BLOOD UREA NITROGEN 8.8 mg/dL (7-18); CALCIUM 8.2 mg/dL (8.5-10.1)
[2023-09-16 03:04] LABS: CREATININE 0.6 mg/dL (0.55-1.3)
[2023-09-16 03:05] LABS: BILIRUBIN,TOTAL 0.9 mg/dL (0.2-1); TOT PROT 6.3 g/dl (6.4-8.2)
[2023-09-16 03:32] LABS: EPI CELLS >36 /uL (0-25.1); HYALINE CASTS 0 /uL (0-3.1); URINE APPEARANCE CLEAR; URINE BACTERIA 1075 /uL (0-1359); URINE BILIRUBIN NEGATIVE (NEGATIVE); URINE COLOR YELLOW; URINE GLUCOSE (UA) 3+ (NEGATIVE); URINE KETONE NEGATIVE (NEGATIVE); URINE LEUK ESTERASE NEGATIVE (NEGATIVE); URINE NITRITE NEGATIVE (NEGATIVE); URINE PROTEIN NEGATIVE (NEGATIVE); URINE RBC 2 /uL (0-23.9); URINE UROBILINOGEN 0.2 mg/dL (0.2-1.0); URINE WBC 13 /uL (0-25.8)
[2023-09-16] MEDS ORDERED: CEPHALEXIN MONOHYDRATE 500 MG CAPSULE (UD) PO ONE (03:39)
[2023-09-16] MEDS ORDERED: CEPHALEXIN MONOHYDRATE 500 MG CAPSULE (UD) ONE (03:50)
[2023-09-16 05:35] LABS: PH,URINE 5.5 (5.0-8.0); URINE APPEARANCE CLEAR; URINE BILIRUBIN NEGATIVE (NEGATIVE); URINE COLOR YELLOW; URINE GLUCOSE (UA) 3+ (NEGATIVE); URINE KETONE 1+ (NEGATIVE); URINE LEUK ESTERASE NEGATIVE (NEGATIVE); URINE NITRITE NEGATIVE (NEGATIVE); URINE PROTEIN NEGATIVE (NEGATIVE); URINE UROBILINOGEN 0.2 mg/dL (0.2-1.0)
== END 2023-09-16 06:26 | disposition home or self-care (01) ==
LOC: JER 00:36
DX: O20.9 Hemorrhage in early pregnancy, unspecified (principal); O26.891 Other specified pregnancy related conditions, first trimester; R10.30 Lower abdominal pain, unspecified; Z3A.01 Less than 8 weeks gestation of pregnancy
CPT/HCPCS: 36415; 76817-TC; 80053; 81003; 84702; 85025; 86850; 86900; 86901; 87077; 87086; 99283-25

== ENCOUNTER 2024-04-28 16:16 | Emergency (ER) | payer OTHER ==
[2024-04-28 16:23] VITALS: BP 116/69; PULSE 90; RESP 18; BMI 33.5
[2024-04-28 16:55] VITALS: TEMP 98.7
== END 2024-04-28 18:00 | disposition home or self-care (01) ==
LOC: JER 16:16
DX: N75.0 Cyst of Bartholin's gland (principal)
CPT/HCPCS: 99283-25